=== PATIENT | male | born 1960 | race Caucasian/White ===

== ENCOUNTER 2017-04-14 05:35 | Emergency (ER) | payer SELFPAY ==
[2017-04-14] MEDS ORDERED: Ondansetron HCl/PF 4 MG/2 ML Vial ONE (06:17)
[2017-04-14] MEDS ORDERED: Pantoprazole 40 MG VIAL ONE (06:17)
[2017-04-14 06:22] LABS: #Eosinphils 0.1 thou/uL (0.0-0.7); #Lymphocytes 0.4 thou/uL (1.20-3.40); #Monocytes 0.8 thou/uL (0.11-0.59); #Neutrophils 11.6 thou/uL (1.40-6.50); %Basophils 0.1 % (0.0-1.0); %Eosinophils 0.5 % (0.0-10.0); %Lymphocytes 2.8 % (21.0-51.0); %Monocytes 6.5 % (0.0-10.0); Hematocrit 51.8 % (42.0-52.0); Mean Platelet Volume 6.6 fL (7.4-10.4); Red Blood Cell (RBC) Count 5.54 mill/uL (4.70-6.10); White Blood Cell (WBC) Count 12.9 thou/uL (4.8-10.8)
[2017-04-14 06:46] LABS: ALT (SGPT) 18 U/L (8-55); AST (SGOT) 17 U/L (5-34); Alkaline Phosphatase 86 U/L (40-150); Anion Gap 15 mmol/L (10-20); BUN (Urea Nitrogen) 19 mg/dL (8.4-25.7); Bilirubin, Total 0.6 mg/dL (0.2-1.2); Calc. Creatinine Clearance 0 mL/min (70-130); Calcium 9.7 mg/dL (7.8-10.44); Carbon Dioxide 23 mmol/L (22-29); Chloride 105 mmol/L (98-107); Estimated GFR-MDRD 69; Globulin 3.6 g/dL (2.4-3.5); Lipase 14 U/L (8-78); Protein, Total 8.3 g/dL (6.0-8.3)
[2017-04-14] MEDS ORDERED: Acetaminophen 500 MG TAB ONE (07:53)
--- NOTE | 2017-04-14 08:53 | RAD ---
ACUTE ABDOMINAL SERIES: DATE: 04/14/17. HISTORY: Nausea, vomiting, and diarrhea since 0130 hours. Abdominal pain. FINDINGS: CHEST X-RAY: Cardiac silhouette and pulmonary vasculature are within normal limits. The lungs are clear. There h as been no interval change from the study on 02/01/13. Degenerative changes are noted in the spine. TWO VIEWS OF THE ABDOMEN: No free intraperitoneal gas is seen beneath the hemidiaphragms. There is a nonspecific bowel gas pat tern. Phleboliths overlie the pelvis. There is a punctate metallic-appearing density overlying the abdomen, but this is noted to overlie the region of the transverse process of the L1 vertebral body o n the supine view and overlies the transverse process of the L4 vertebral body on the upright view. I am unsure of the exact location or whether this represents overlying artifact. This measures appro ximately 3 mm. No suspicious calcifications are seen. There are surgical clips overlying the right upper quadrant. Degenerative changes are noted in the spine. IMPRESSION: 1. Nonspecific bowel gas pattern. 2. Punctate metallic density medial left abdomen which is difficult to further localize but may repr esent a tiny metallic foreign body. POS: RENEA
== END 2017-04-14 08:20 | disposition home or self-care (01) ==
LOC: ERS 05:35
DX: R11.2 Nausea with vomiting, unspecified (principal); R19.7 Diarrhea, unspecified; R10.9 Unspecified abdominal pain; F41.9 Anxiety disorder, unspecified; Z87.891 Personal history of nicotine dependence; Z79.82 Long term (current) use of aspirin; Z79.899 Other long term (current) drug therapy
CPT/HCPCS: 74022; 80053; 83690; 85025; 93005; 96361; 96372; 96374; 96375; C9113; J2405

== ENCOUNTER 2022-04-23 19:37 | Inpatient (IN) | payer BC ==
[2022-04-23] MEDS ORDERED: FENTANYL 50 MCG/ML 1 ML VIAL ONE ×2 (20:16→22:10)
[2022-04-23] MEDS ORDERED: Ondansetron PF 4 MG/2 ML Vial ONE (20:34)
[2022-04-23] MEDS ORDERED: Piperacillin/Tazobactam 4.5 GM VIAL ONE (21:17)
[2022-04-23 22:05] LABS: #Eosinphils 0.1 thou/uL (0.0-0.7); #Lymphocytes 1.4 thou/uL (1.20-3.40); #Monocytes 0.6 thou/uL (0.11-0.59); #Neutrophils 9.4 thou/uL (1.40-6.50); %Basophils 0.1 % (0.0-1.0); %Eosinophils 0.5 % (0.0-10.0); %Lymphocytes 12.4 % (21.0-51.0); %Monocytes 5.2 % (0.0-10.0); %Neutrophils 81.9 % (42.0-75.0); Hemoglobin 12.1 g/dL (14.0-18.0); Mean Corpuscular HGB CONC 32.6 g/dL (32.0-36.0); Mean Corpuscular Hemoglobin 31.4 pg (27.0-31.0); Mean Corpuscular Volume 96.2 fl (78.0-98.0); Mean Platelet Volume 5.8 fL (7.4-10.4); Platelet Count 355 10x3/uL (130-400); RBC Distribution Width 15.1 % (11.5-14.5); Red Blood Cell (RBC) Count 3.85 mill/uL (4.70-6.10); White Blood Cell (WBC) Count 11.4 10x3/uL (4.8-10.8)
[2022-04-23 22:27] LABS: ALT (SGPT) 52 U/L (8-55); AST (SGOT) 35 U/L (5-34); Albumin 3.1 g/dL (3.5-5.0); Alkaline Phosphatase 252 U/L (40-110); Anion Gap 18 mmol/L (10-20); BUN (Urea Nitrogen) 34 mg/dL (8.4-25.7); Bilirubin, Total 1.3 mg/dL (0.2-1.2); Calc. Creatinine Clearance 0 mL/min (70-130); Calcium 8.4 mg/dL (7.8-10.44); Carbon Dioxide 20 mmol/L (22-29); Chloride 100 mmol/L (98-107); Estimated GFR 55; Globulin 3.1 g/dL (2.4-3.5); Glucose 85 mg/dL (70-105); Lipase 78 U/L (8-78); Potassium 4.3 mmol/L (3.5-5.1); Protein, Total 6.2 g/dL (6.0-8.3); Sodium 134 mmol/L (136-145)
[2022-04-23 22:48] LABS: CKMB 3.6 ng/mL (0-6.6)
[2022-04-24] MEDS ORDERED: Ondansetron ODT 4 MG TAB PO PRN (00:17)
[2022-04-24] MEDS ORDERED: Acetaminophen 650 MG Suppository PR PRN (00:17)
[2022-04-24] MEDS ORDERED: Acetaminophen 325 MG TAB PO PRN (00:17)
[2022-04-24] MEDS ORDERED: Piperacillin/Tazobactam 3.375 GM VIAL ONE ×2 (05:23→13:00)
[2022-04-24] MEDS: Piperacillin/Tazobactam 3.375 GM in Sodium Chloride 0.9% 100 ML IVPB SCH ×2 (05:29→13:09)
[2022-04-24 06:09] LABS: #Eosinphils 0.1 thou/uL (0.0-0.7); #Lymphocytes 1.5 thou/uL (1.20-3.40); #Monocytes 0.6 thou/uL (0.11-0.59); #Neutrophils 9.4 thou/uL (1.40-6.50); %Basophils 0.4 % (0.0-1.0); %Eosinophils 0.5 % (0.0-10.0); %Lymphocytes 13.2 % (21.0-51.0); %Monocytes 5.5 % (0.0-10.0); %Neutrophils 80.4 % (42.0-75.0); Hemoglobin 10.7 g/dL (14.0-18.0); Mean Corpuscular HGB CONC 31.1 g/dL (32.0-36.0); Mean Corpuscular Hemoglobin 30.5 pg (27.0-31.0); Mean Corpuscular Volume 98.3 fl (78.0-98.0); Mean Platelet Volume 6.6 fL (7.4-10.4); Platelet Count 339 10x3/uL (130-400); RBC Distribution Width 15.3 % (11.5-14.5); White Blood Cell (WBC) Count 11.6 10x3/uL (4.8-10.8)
[2022-04-24 07:30] LABS: Chloride 104 mmol/L (98-107); Potassium 4.5 mmol/L (3.5-5.1); Sodium 136 mmol/L (136-145)
[2022-04-24 07:30] LABS: Bilirubin Negative (Negative); Blood, Urine Negative (Negative); Clarity Clear (Clear); Glucose, Urine (Dipstick) Normal (Negative); Ketone, Urine Trace mg/dL (Negative); Leukocyte Negative Leu/uL (Negative); Nitrite Negative (Negative); Protein, Urine (Dipstick) 30 mg/dL (Neg-Trace); RBC/HPF 0-3 HPF (0-3); Specific Gravity, Urine 1.019 (1.002-1.036); Squamous Epithelial None Seen HPF (0-3); Urobilinogen Normal mg/dL (Less than 2); WBC/HPF 0-3 HPF (0-3); pH, Urine 5.5 (5.0-9.0)
[2022-04-24 07:31] LABS: Calcium 8.5 mg/dL (7.8-10.44); Glucose 90 mg/dL (70-105)
[2022-04-24 07:33] LABS: Anion Gap 15 mmol/L (10-20); Carbon Dioxide 22 mmol/L (22-29)
[2022-04-24 07:33] LABS: Bacteria/HPF 1+ HPF (None Seen)
[2022-04-24 07:34] LABS: Calc. Creatinine Clearance 0 mL/min (70-130); Estimated GFR 59
[2022-04-24 07:35] LABS: BUN (Urea Nitrogen) 31 mg/dL (8.4-25.7)
[2022-04-24] MEDS ORDERED: Sodium Chloride 0.9% 1,000 ML IV SCH ×2 (08:30→16:00)
[2022-04-24] MEDS ORDERED: Enoxaparin Sodium 40 MG/0.4 ML SYRINGE ONE (09:32)
[2022-04-24] MEDS: Enoxaparin Sodium 40 MG/0.4 ML SYRINGE SC SCH (09:42)
[2022-04-24 10:21] LABS: CKMB 2.5 ng/mL (0-6.6)
[2022-04-24] MEDS ORDERED: Albumin 25% 25 GM/100 ML BOT IVPB SCH (11:30)
[2022-04-24 11:56] LABS: SARS-CoV-2 NAA Rapid Test Not Detected (NotDetected)
[2022-04-24] MEDS ORDERED: Vancomycin 1 GM in Premix Bag 1 BAG IVPB SCH (16:00)
[2022-04-24 16:46] LABS: #Eosinphils 0.1 thou/uL (0.0-0.7); #Lymphocytes 1.3 thou/uL (1.20-3.40); #Monocytes 0.3 thou/uL (0.11-0.59); #Neutrophils 6.1 thou/uL (1.40-6.50); %Basophils 0.6 % (0.0-1.0); %Eosinophils 1.3 % (0.0-10.0); %Lymphocytes 16.2 % (21.0-51.0); %Monocytes 4.3 % (0.0-10.0); %Neutrophils 77.7 % (42.0-75.0); Hemoglobin 10.1 g/dL (14.0-18.0); Mean Corpuscular HGB CONC 31.1 g/dL (32.0-36.0); Mean Corpuscular Hemoglobin 30.9 pg (27.0-31.0); Mean Corpuscular Volume 99.3 fl (78.0-98.0); Mean Platelet Volume 5.7 fL (7.4-10.4); Platelet Count 335 10x3/uL (130-400); RBC Distribution Width 15.2 % (11.5-14.5); Red Blood Cell (RBC) Count 3.27 mill/uL (4.70-6.10); White Blood Cell (WBC) Count 7.8 10x3/uL (4.8-10.8)
[2022-04-24 16:56] LABS: Actual Bicarbonate (HCO3v) 21 mEq/L (22-28); Base Excess -0.7 mEq/L (-2.0 to +3.0); Calcium, Ionized (venous) 1.02 mmol/L (1.16-1.32); Chloride (VBG) 105 mmol/L (98-106); Potassium (VBG) 3.96 mmol/L (3.70-5.30); Sodium 134.5 mmol/L (133-146); pH (venous) 7.52 (7.32-7.43)
[2022-04-24 17:00] LABS: Lactic Acid 0.9 mmol/L (0.5-2.2)
[2022-04-24] MEDS ORDERED: Meropenem 1 GM in Sodium Chloride 0.9% 100 ML IVPB SCH ×2 (17:00→22:00)
[2022-04-24] MEDS ORDERED: VANCOMYCIN 2 GRAM/500 ML BAG 2 GM in Premix Bag 1 BAG IVPB SCH ×2 (17:00→19:15)
[2022-04-24] MEDS ORDERED: Morphine 4 MG/ML VIAL ONE (17:21)
[2022-04-24 17:27] LABS: CKMB 2.3 ng/mL (0-6.6)
[2022-04-24] MEDS ORDERED: Lidocaine 1% (PF) 30 ML VIAL ONE (17:32)
[2022-04-24] MEDS ORDERED: traMADol HCl 50 MG TAB PO PRN (18:09)
[2022-04-24] MEDS: NOREPINEPHRINE 8 MG/250 ML-D5W 250 ML IVPB SCH (18:10)
[2022-04-24] MEDS ORDERED: Pantoprazole 40 MG VIAL IVP SCH (18:30)
[2022-04-24] MEDS: Albumin 25% 25 GM/100 ML BOT IVPB SCH ×2 (18:49→23:39)
[2022-04-24] MEDS: Hydrocortisone Sod Succ/PF 100 mg/2 ml Vial IVP SCH ×2 (18:50→23:39)
[2022-04-24] MEDS: Lactated Ringer's 1,000 ML IV SCH (18:50)
[2022-04-24] MEDS: Morphine 4 MG/ML VIAL SLOW IVP PRN (19:45)
[2022-04-24] MEDS: Ondansetron PF 4 MG/2 ML Vial IVP PRN (19:46)
[2022-04-24] MEDS: HYDROcodone/Acetaminophen 7.5/325 mg Tablet PO PRN (21:12)
[2022-04-25] MEDS: Meropenem 1 GM in Sodium Chloride 0.9% 100 ML IVPB SCH ×3 (00:50→17:43)
[2022-04-25] MEDS: HYDROcodone/Acetaminophen 7.5/325 mg Tablet PO PRN ×3 (03:27→19:42)
[2022-04-25] MEDS: Lactated Ringer's 1,000 ML IV SCH ×2 (03:27→14:21)
[2022-04-25] MEDS: Vancomycin 1 GM in Premix Bag 1 BAG IVPB SCH ×2 (05:59→17:43)
[2022-04-25] MEDS: Hydrocortisone Sod Succ/PF 100 mg/2 ml Vial IVP SCH ×3 (05:59→17:49)
[2022-04-25] MEDS: Pantoprazole 40 MG VIAL IVP SCH (09:12)
[2022-04-25] MEDS: Enoxaparin Sodium 40 MG/0.4 ML SYRINGE SC SCH (09:12)
[2022-04-25] MEDS: Morphine 4 MG/ML VIAL SLOW IVP PRN (11:06)
[2022-04-25] MEDS ORDERED: Lidocaine 4% Topical Sol 50 ML BOT TOP PRN (11:14)
[2022-04-25] MEDS: NOREPINEPHRINE 8 MG/250 ML-D5W 250 ML IVPB SCH (14:22)
[2022-04-25] MEDS: Ondansetron PF 4 MG/2 ML Vial IVP PRN (21:25)
[2022-04-26] MEDS: HYDROcodone/Acetaminophen 7.5/325 mg Tablet PO PRN ×2 (00:03→10:42)
[2022-04-26] MEDS: Lactated Ringer's 1,000 ML IV SCH ×2 (01:57→10:49)
[2022-04-26] MEDS: Meropenem 1 GM in Sodium Chloride 0.9% 100 ML IVPB SCH ×3 (01:59→17:03)
[2022-04-26] MEDS: Hydrocortisone Sod Succ/PF 100 mg/2 ml Vial IVP SCH ×4 (02:01→18:09)
[2022-04-26 06:59] LABS: Vancomycin, Trough 29.5 ug/mL
[2022-04-26 08:27] LABS: #Lymphocytes 1.3 thou/uL (1.20-3.40); #Monocytes 0.6 thou/uL (0.11-0.59); #Neutrophils 8.3 thou/uL (1.40-6.50); %Basophils 0.2 % (0.0-1.0); %Eosinophils 0.3 % (0.0-10.0); %Lymphocytes 12.5 % (21.0-51.0); %Monocytes 5.4 % (0.0-10.0); %Neutrophils 81.5 % (42.0-75.0); Mean Corpuscular HGB CONC 31.4 g/dL (32.0-36.0); Mean Corpuscular Hemoglobin 30.9 pg (27.0-31.0); Mean Corpuscular Volume 98.4 fl (78.0-98.0); Mean Platelet Volume 6.3 fL (7.4-10.4); Platelet Count 329 10x3/uL (130-400); RBC Distribution Width 15.2 % (11.5-14.5); Red Blood Cell (RBC) Count 2.92 mill/uL (4.70-6.10); White Blood Cell (WBC) Count 10.2 10x3/uL (4.8-10.8)
[2022-04-26 08:35] LABS: ALT (SGPT) 29 U/L (8-55); AST (SGOT) 14 U/L (5-34); Albumin 3.3 g/dL (3.5-5.0); Alkaline Phosphatase 128 U/L (40-110); Anion Gap 18 mmol/L (10-20); BUN (Urea Nitrogen) 27 mg/dL (8.4-25.7); Bilirubin, Total 0.7 mg/dL (0.2-1.2); Calc. Creatinine Clearance 91 mL/min (70-130); Calcium 8.9 mg/dL (7.8-10.44); Carbon Dioxide 19 mmol/L (22-29); Chloride 107 mmol/L (98-107); Estimated GFR 73; Globulin 2.8 g/dL (2.4-3.5); Glucose 110 mg/dL (70-105); Magnesium 1.6 mg/dL (1.6-2.6); Phosphorus 3.6 mg/dL (2.3-4.7); Potassium 3.5 mmol/L (3.5-5.1); Protein, Total 6.1 g/dL (6.0-8.3); Sodium 140 mmol/L (136-145)
[2022-04-26] MEDS: Pantoprazole 40 MG VIAL IVP SCH (09:09)
[2022-04-26] MEDS: Enoxaparin Sodium 40 MG/0.4 ML SYRINGE SC SCH (09:10)
[2022-04-26] MEDS ORDERED: Acetaminophen 325 MG/10.15 ML UDCUP PO PRN (10:54)
[2022-04-26] MEDS ORDERED: Methyl Salicylate/Menthol 85 GM TUBE TOP PRN (10:55)
[2022-04-26] MEDS: Acetaminophen/Codeine 30-300mg Tablet PO PRN (17:55)
[2022-04-26] MEDS: Vancomycin 1 GM in Premix Bag 1 BAG IVPB SCH (18:08)
[2022-04-26] MEDS: Sodium Chloride 0.45% 1,000 ML IV SCH (19:50)
[2022-04-27] MEDS ORDERED: VANCOMYCIN 1.25 GM/250 ML BAG 1.25 GM in Premix Bag 1 BAG IVPB SCH (02:30)
[2022-04-27 03:42] LABS: Vancomycin, Random 20.4 ug/mL (See Comment)
[2022-04-27] MEDS: Enoxaparin Sodium 40 MG/0.4 ML SYRINGE SC SCH (08:08)
[2022-04-27] MEDS: Pantoprazole 40 MG VIAL IVP SCH (08:08)
[2022-04-27 08:20] LABS: #Eosinphils 0.1 thou/uL (0.0-0.7); #Monocytes 0.8 thou/uL (0.11-0.59); #Neutrophils 6.3 thou/uL (1.40-6.50); %Basophils 0.1 % (0.0-1.0); %Eosinophils 1.1 % (0.0-10.0); %Monocytes 8.9 % (0.0-10.0); %Neutrophils 67.9 % (42.0-75.0); Hemoglobin 9.6 g/dL (14.0-18.0); Mean Corpuscular HGB CONC 32.1 g/dL (32.0-36.0); Mean Corpuscular Hemoglobin 31.5 pg (27.0-31.0); Mean Corpuscular Volume 98.3 fl (78.0-98.0); Mean Platelet Volume 6.2 fL (7.4-10.4); Platelet Count 322 10x3/uL (130-400); RBC Distribution Width 15.4 % (11.5-14.5); Red Blood Cell (RBC) Count 3.03 mill/uL (4.70-6.10); White Blood Cell (WBC) Count 9.2 10x3/uL (4.8-10.8)
[2022-04-27 08:38] LABS: Anion Gap 15 mmol/L (10-20); BUN (Urea Nitrogen) 30 mg/dL (8.4-25.7); Calc. Creatinine Clearance 101 mL/min (70-130); Calcium 8.7 mg/dL (7.8-10.44); Carbon Dioxide 20 mmol/L (22-29); Chloride 105 mmol/L (98-107); Estimated GFR 82; Glucose 100 mg/dL (70-105); Potassium 3.2 mmol/L (3.5-5.1); Sodium 137 mmol/L (136-145)
[2022-04-27] MEDS ORDERED: Potassium Chloride 20 MEQ in Premix Bag 1 BAG IVPB SCH (09:45)
[2022-04-27] MEDS: HYDROcodone/Acetaminophen 7.5/325 mg Tablet PO PRN (10:55)
[2022-04-27] MEDS ORDERED: FLU VACC QS2022-23(6MOS UP)/PF 60 MCG/0.5 ML SYRINGE IM ONE (15:45)
[2022-04-27] MEDS: Sodium Chloride 0.45% 1,000 ML IV SCH ×2 (15:46→22:24)
[2022-04-27] MEDS: Acetaminophen/Codeine 30-300mg Tablet PO PRN ×2 (18:05→22:23)
[2022-04-28] MEDS: Acetaminophen/Codeine 30-300mg Tablet PO PRN ×3 (03:45→21:41)
[2022-04-28 03:57] LABS: #Eosinphils 0.4 thou/uL (0.0-0.7); #Lymphocytes 1.8 thou/uL (1.20-3.40); #Monocytes 0.8 thou/uL (0.11-0.59); #Neutrophils 4.6 thou/uL (1.40-6.50); %Basophils 0.1 % (0.0-1.0); %Eosinophils 5.4 % (0.0-10.0); %Lymphocytes 24.2 % (21.0-51.0); %Monocytes 10.1 % (0.0-10.0); %Neutrophils 60.1 % (42.0-75.0); Hemoglobin 9.7 g/dL (14.0-18.0); Mean Corpuscular HGB CONC 32.8 g/dL (32.0-36.0); Mean Corpuscular Hemoglobin 31.5 pg (27.0-31.0); Mean Platelet Volume 6.1 fL (7.4-10.4); Platelet Count 307 10x3/uL (130-400); RBC Distribution Width 14.9 % (11.5-14.5); Red Blood Cell (RBC) Count 3.08 mill/uL (4.70-6.10); White Blood Cell (WBC) Count 7.6 10x3/uL (4.8-10.8)
[2022-04-28 04:17] LABS: Anion Gap 11 mmol/L (10-20); BUN (Urea Nitrogen) 25 mg/dL (8.4-25.7); Calc. Creatinine Clearance 123 mL/min (70-130); Calcium 8.1 mg/dL (7.8-10.44); Carbon Dioxide 21 mmol/L (22-29); Chloride 106 mmol/L (98-107); Estimated GFR 99; Glucose 78 mg/dL (70-105); Potassium 3.2 mmol/L (3.5-5.1); Sodium 135 mmol/L (136-145)
[2022-04-28] MEDS ORDERED: Electrolyte Replacement Protocol 1 EACH FS SCH (08:00)
[2022-04-28] MEDS ORDERED: Potassium Chloride 20 MEQ TAB PO SCH (08:00)
[2022-04-28 08:10] LABS: Magnesium 1.3 mg/dL (1.6-2.6)
[2022-04-28] MEDS ORDERED: Electrolyte Replacement Protocol FS PRN (08:15)
[2022-04-28 08:44] LABS: Phosphorus 2.6 mg/dL (2.3-4.7)
[2022-04-28] MEDS ORDERED: Potassium Bicarbonate/Cit Ac 20 MEQ TAB PO SCH ×2 (09:00→14:30)
[2022-04-28] MEDS: Enoxaparin Sodium 40 MG/0.4 ML SYRINGE SC SCH (09:14)
[2022-04-28] MEDS ORDERED: Magnesium Sulfate 3 GM in Sodium Chloride 0.9% 100 ML IVPB SCH (09:45)
[2022-04-28] MEDS: Sodium Chloride 0.45% 1,000 ML IV SCH ×2 (10:15→19:51)
[2022-04-28] MEDS ORDERED: Magnesium Sulfate 4 GM in Sodium Chloride 0.9% 250 ML 250 ML IVPB SCH (12:00)
[2022-04-28] MEDS ORDERED: Magnesium Sulfate In Water 4 GM in Premix Bag 1 BAG IVPB SCH (12:00)
[2022-04-28 13:23] LABS: Potassium 3.5 mmol/L (3.5-5.1)
[2022-04-28 16:19] VITALS: BMI 27.6
[2022-04-28 19:54] LABS: Potassium 3.9 mmol/L (3.5-5.1)
[2022-04-29] MEDS: Acetaminophen/Codeine 30-300mg Tablet PO PRN ×3 (01:49→19:00)
[2022-04-29 05:39] LABS: Anion Gap 10 mmol/L (10-20); BUN (Urea Nitrogen) 18 mg/dL (8.4-25.7); Calc. Creatinine Clearance 135 mL/min (70-130); Carbon Dioxide 22 mmol/L (22-29); Chloride 103 mmol/L (98-107); Estimated GFR 102; Glucose 74 mg/dL (70-105); Magnesium 1.8 mg/dL (1.6-2.6); Phosphorus 2.8 mg/dL (2.3-4.7); Potassium 3.4 mmol/L (3.5-5.1); Sodium 132 mmol/L (136-145)
[2022-04-29] MEDS ORDERED: Sodium Chloride 0.9% 500 ML IV SCH (07:00)
[2022-04-29] MEDS: Enoxaparin Sodium 40 MG/0.4 ML SYRINGE SC SCH (09:25)
[2022-04-29] MEDS: Mag-Al 1200 mg/1200 mg/30 ML UDCUP PO PRN (09:26)
[2022-04-29] MEDS ORDERED: Acetaminophen 325 MG TAB PO PRN (10:49)
[2022-04-29] MEDS ORDERED: Lactated Ringer's 500 ML IV SCH (11:30)
[2022-04-29] MEDS ORDERED: Potassium Bicarbonate/Cit Ac 20 MEQ TAB PO SCH (12:45)
[2022-04-29] MEDS ORDERED: Magnesium 2 GM/50 ML(in water) 2 GM in Premix Bag 1 BAG IVPB SCH (12:45)
[2022-04-29] MEDS: Sodium Chloride 0.45% 1,000 ML IV SCH (17:43)
[2022-04-30] MEDS: Acetaminophen/Codeine 30-300mg Tablet PO PRN ×2 (02:34→08:24)
[2022-04-30] MEDS: Enoxaparin Sodium 40 MG/0.4 ML SYRINGE SC SCH (08:40)
[2022-04-30] MEDS: Mag-Al 1200 mg/1200 mg/30 ML UDCUP PO PRN (08:40)
[2022-04-30] MEDS ORDERED: Midodrine HCl 5 MG TAB PO SCH (10:45)
[2022-04-30] MEDS: Midodrine HCl 5 MG TAB PO SCH ×2 (14:35→20:15)
[2022-04-30] MEDS: Ondansetron PF 4 MG/2 ML Vial IVP PRN (17:52)
[2022-05-01] MEDS: Acetaminophen/Codeine 30-300mg Tablet PO PRN ×2 (01:00→13:00)
[2022-05-01] MEDS: Enoxaparin Sodium 40 MG/0.4 ML SYRINGE SC SCH (09:20)
[2022-05-01] MEDS: Midodrine HCl 5 MG TAB PO SCH ×2 (09:20→16:52)
[2022-05-01 16:21] VITALS: BP 81/49
[2022-05-01 16:45] VITALS: TEMP 97.7
== END 2022-05-01 19:15 | DRG 871 ==
LOC: ERS 19:37 → ERHOLD 04-24 00:17 → 2NO 04-24 14:56 → CCU 04-24 16:58 → IMCU/EMU 04-26 17:42
PROVIDERS: ADMIT Student in an Organized Health Care Education/Training Program; ATTEND Family Medicine
PROC: 02HV33Z Insertion of Infusion Device into Superior Vena Cava, Percutaneous Approach (ICD-10-PCS; principal; 2022-04-24)
PROC: B548ZZA Ultrasonography of Superior Vena Cava, Guidance (ICD-10-PCS; 2022-04-24)
PROC: 3E043XZ Introduction of Vasopressor into Central Vein, Percutaneous Approach (ICD-10-PCS; 2022-04-24)
PROC: 3E04329 Introduction of Other Anti-infective into Central Vein, Percutaneous Approach (ICD-10-PCS; 2022-04-24)
DX: A41.59 Other Gram-negative sepsis (principal); J15.0 Pneumonia due to Klebsiella pneumoniae; R65.21 Severe sepsis with septic shock; R57.0 Cardiogenic shock; K56.50 Intestinal adhesions [bands], unspecified as to partial versus complete obstruction; I69.354 Hemiplegia and hemiparesis following cerebral infarction affecting left non-dominant side; N17.9 Acute kidney failure, unspecified; J90 Pleural effusion, not elsewhere classified; N39.0 Urinary tract infection, site not specified; E87.1 Hypo-osmolality and hyponatremia; K56.7 Ileus, unspecified; J98.11 Atelectasis; Z20.822 Contact with and (suspected) exposure to COVID-19; I48.91 Unspecified atrial fibrillation; K21.9 Gastro-esophageal reflux disease without esophagitis; I25.5 Ischemic cardiomyopathy; N40.0 Benign prostatic hyperplasia without lower urinary tract symptoms; R79.89 Other specified abnormal findings of blood chemistry; R53.81 Other malaise; E87.6 Hypokalemia; I25.10 Atherosclerotic heart disease of native coronary artery without angina pectoris; Z95.1 Presence of aortocoronary bypass graft; Z85.46 Personal history of malignant neoplasm of prostate; Z79.82 Long term (current) use of aspirin; Z79.899 Other long term (current) drug therapy; Z90.49 Acquired absence of other specified parts of digestive tract; I25.2 Old myocardial infarction; Z93.2 Ileostomy status; Z87.891 Personal history of nicotine dependence
CPT/HCPCS: 36415; 36416; 71045; 76705; 80048; 80053; 80202; 81001; 82553; 82805; 83605; 83690; 83735; 84100; 84484; 85025; 87040; 87077; 87086; 87149; 87186; 87811; 93005; 93306; 96374; 96375; 96376; 97139; C9113; J1650; J1720; J1956; J2001; J2185; J2270; J2405; J2543; J3010; J3370; J3475; J3480; J3490; J7030; J7050; J7120; P9047; Q0162

== ENCOUNTER 2022-05-10 18:50 | Inpatient (IN) | payer BC ==
[~2022-05-10 18:50] MED LIST: Iopamidol-370 76% 500 ML 1 ML ONE
[2022-05-10 20:38] LABS: #Eosinphils 0.1 thou/uL (0.0-0.7); #Lymphocytes 1.8 thou/uL (1.20-3.40); #Monocytes 0.9 thou/uL (0.11-0.59); #Neutrophils 6.3 thou/uL (1.40-6.50); %Basophils 0.5 % (0.0-1.0); %Eosinophils 1.1 % (0.0-10.0); %Lymphocytes 19.5 % (21.0-51.0); %Monocytes 10.1 % (0.0-10.0); %Neutrophils 68.8 % (42.0-75.0); Hemoglobin 9.8 g/dL (14.0-18.0); Mean Corpuscular HGB CONC 31.9 g/dL (32.0-36.0); Mean Corpuscular Hemoglobin 30.8 pg (27.0-31.0); Mean Corpuscular Volume 96.8 fl (78.0-98.0); Mean Platelet Volume 6.6 fL (7.4-10.4); Platelet Count 328 10x3/uL (130-400); RBC Distribution Width 15.1 % (11.5-14.5); Red Blood Cell (RBC) Count 3.17 mill/uL (4.70-6.10); White Blood Cell (WBC) Count 9.2 10x3/uL (4.8-10.8)
[2022-05-10 20:58] LABS: ALT (SGPT) 30 U/L (8-55); AST (SGOT) 32 U/L (5-34); Albumin 3.1 g/dL (3.5-5.0); Alkaline Phosphatase 161 U/L (40-110); Anion Gap 16 mmol/L (10-20); BUN (Urea Nitrogen) 11 mg/dL (8.4-25.7); Calc. Creatinine Clearance 0 mL/min (70-130); Calcium 8.8 mg/dL (7.8-10.44); Carbon Dioxide 22 mmol/L (22-29); Chloride 99 mmol/L (98-107); Estimated GFR 95; Globulin 2.8 g/dL (2.4-3.5); Glucose 87 mg/dL (70-105); Lipase 26 U/L (8-78); Potassium 4.3 mmol/L (3.5-5.1); Protein, Total 5.9 g/dL (6.0-8.3); Sodium 133 mmol/L (136-145)
[2022-05-11 01:57] VITALS: BMI 26.6
[2022-05-11] MEDS: Ondansetron PF 4 MG/2 ML Vial IVP PRN ×3 (04:33→17:38)
[2022-05-11 05:21] LABS: SARS-CoV-2 NAA Rapid Test Not Detected (NotDetected)
[2022-05-11 07:24] LABS: #Basophils 0.1 thou/uL (0.0-0.2); #Eosinphils 0.2 thou/uL (0.0-0.7); #Lymphocytes 1.6 thou/uL (1.20-3.40); #Monocytes 0.8 thou/uL (0.11-0.59); #Neutrophils 4.5 thou/uL (1.40-6.50); %Basophils 0.9 % (0.0-1.0); %Eosinophils 2.7 % (0.0-10.0); %Lymphocytes 22.3 % (21.0-51.0); %Monocytes 11.3 % (0.0-10.0); %Neutrophils 62.7 % (42.0-75.0); Hemoglobin 9.9 g/dL (14.0-18.0); Mean Corpuscular HGB CONC 32.2 g/dL (32.0-36.0); Mean Corpuscular Hemoglobin 31.1 pg (27.0-31.0); Mean Corpuscular Volume 96.4 fl (78.0-98.0); Platelet Count 231 10x3/uL (130-400); RBC Distribution Width 15.1 % (11.5-14.5); Red Blood Cell (RBC) Count 3.17 mill/uL (4.70-6.10); White Blood Cell (WBC) Count 7.1 10x3/uL (4.8-10.8)
[2022-05-11 07:38] LABS: Anion Gap 18 mmol/L (10-20); BUN (Urea Nitrogen) 10 mg/dL (8.4-25.7); Calc. Creatinine Clearance 126 mL/min (70-130); Calcium 8.4 mg/dL (7.8-10.44); Carbon Dioxide 17 mmol/L (22-29); Chloride 103 mmol/L (98-107); Estimated GFR 100; Glucose 81 mg/dL (70-105); Magnesium 1.6 mg/dL (1.6-2.6); Potassium 3.7 mmol/L (3.5-5.1); Sodium 134 mmol/L (136-145)
[2022-05-11] MEDS: Enoxaparin Sodium 40 MG/0.4 ML SYRINGE SC SCH (08:07)
[2022-05-11] MEDS: Furosemide 20 MG/2 ML VIAL SLOW IVP SCH (08:07)
[2022-05-11] MEDS: Midodrine HCl 5 MG TAB PO SCH ×3 (08:08→21:46)
[2022-05-11] MEDS ORDERED: Cyclobenzaprine 10 MG TAB PO PRN (08:18)
[2022-05-11] MEDS ORDERED: Lidocaine 5% Patch TD SCH (08:30)
[2022-05-11] MEDS ORDERED: Pantoprazole 40 MG VIAL IVP SCH (09:00)
[2022-05-11] MEDS ORDERED: Cyclobenzaprine 10 MG TAB PO SCH (09:00)
[2022-05-11] MEDS ORDERED: Midodrine HCl 5 MG TAB PO SCH (09:00)
[2022-05-11] MEDS ORDERED: Morphine 4 MG/ML VIAL ONE (09:47)
[2022-05-11] MEDS ORDERED: Morphine 4 MG/ML VIAL SLOW IVP SCH (10:45)
[2022-05-11] MEDS: Ketorolac Tromethamine 30 MG/ML VIAL IVP PRN ×2 (10:45→23:33)
[2022-05-11] MEDS: Lidocaine 5% Patch TD SCH (10:46)
[2022-05-11] MEDS ORDERED: MD-Gastroview 120 ML BOT ONE (11:16)
[2022-05-11] MEDS: Transdermal Patch Removal TOP SCH (23:04)
[2022-05-12 06:17] LABS: #Basophils 0.1 thou/uL (0.0-0.2); #Eosinphils 0.3 thou/uL (0.0-0.7); #Lymphocytes 1.4 thou/uL (1.20-3.40); #Monocytes 0.9 thou/uL (0.11-0.59); #Neutrophils 4.8 thou/uL (1.40-6.50); %Basophils 0.8 % (0.0-1.0); %Eosinophils 3.7 % (0.0-10.0); %Lymphocytes 18.6 % (21.0-51.0); %Monocytes 12.5 % (0.0-10.0); %Neutrophils 64.4 % (42.0-75.0); Hemoglobin 10.1 g/dL (14.0-18.0); Mean Corpuscular Hemoglobin 30.5 pg (27.0-31.0); Mean Corpuscular Volume 98.3 fl (78.0-98.0); Mean Platelet Volume 6.4 fL (7.4-10.4); Platelet Count 323 10x3/uL (130-400); RBC Distribution Width 15.3 % (11.5-14.5); Red Blood Cell (RBC) Count 3.32 mill/uL (4.70-6.10); White Blood Cell (WBC) Count 7.4 10x3/uL (4.8-10.8)
[2022-05-12] MEDS ORDERED: Hydrocortisone Sod Succ/PF 100 mg/2 ml Vial IVP SCH ×2 (06:30→14:00)
[2022-05-12 06:35] LABS: Phosphorus 5.4 mg/dL (2.3-4.7)
[2022-05-12 06:40] LABS: Anion Gap 17 mmol/L (10-20); BUN (Urea Nitrogen) 12 mg/dL (8.4-25.7); Calc. Creatinine Clearance 106 mL/min (70-130); Calcium 8.9 mg/dL (7.8-10.44); Carbon Dioxide 23 mmol/L (22-29); Chloride 101 mmol/L (98-107); Estimated GFR 87; Glucose 69 mg/dL (70-105); Magnesium 1.8 mg/dL (1.6-2.6); Potassium 3.4 mmol/L (3.5-5.1); Sodium 138 mmol/L (136-145)
[2022-05-12] MEDS ORDERED: Magnesium 2 GM/50 ML(in water) 2 GM in Premix Bag 1 BAG IVPB SCH (08:15)
[2022-05-12] MEDS: Midodrine HCl 5 MG TAB PO SCH ×3 (08:36→20:26)
[2022-05-12] MEDS: Enoxaparin Sodium 40 MG/0.4 ML SYRINGE SC SCH (08:36)
[2022-05-12] MEDS: Lidocaine 5% Patch TD SCH (08:37)
[2022-05-12] MEDS: Furosemide 20 MG/2 ML VIAL SLOW IVP SCH (08:41)
[2022-05-12] MEDS ORDERED: FLU VACC QS2022-23(6MOS UP)/PF 60 MCG/0.5 ML SYRINGE IM ONE (09:00)
[2022-05-12] MEDS ORDERED: Potassium Chloride 20 MEQ in Premix Bag 1 BAG IVPB SCH (10:00)
[2022-05-12] MEDS: Ketorolac Tromethamine 30 MG/ML VIAL IVP PRN ×2 (12:17→20:25)
[2022-05-12] MEDS ORDERED: Potassium Chloride 20 MEQ TAB PO SCH (14:00)
[2022-05-12] MEDS: Transdermal Patch Removal TOP SCH (21:24)
[2022-05-12] MEDS: Melatonin 3 MG TAB PO SCH (21:24)
[2022-05-12] MEDS: Mag-Al 1200 mg/1200 mg/30 ML UDCUP PO PRN (23:28)
[2022-05-13 05:38] LABS: #Basophils 0.1 thou/uL (0.0-0.2); #Eosinphils 0.3 thou/uL (0.0-0.7); #Lymphocytes 2.6 thou/uL (1.20-3.40); #Monocytes 1.1 thou/uL (0.11-0.59); #Neutrophils 4.4 thou/uL (1.40-6.50); %Basophils 0.6 % (0.0-1.0); %Eosinophils 3.5 % (0.0-10.0); %Lymphocytes 30.7 % (21.0-51.0); %Monocytes 12.7 % (0.0-10.0); %Neutrophils 52.6 % (42.0-75.0); Hemoglobin 10.1 g/dL (14.0-18.0); Mean Corpuscular HGB CONC 32.1 g/dL (32.0-36.0); Mean Corpuscular Hemoglobin 31.1 pg (27.0-31.0); Mean Corpuscular Volume 97.1 fl (78.0-98.0); Mean Platelet Volume 6.6 fL (7.4-10.4); Platelet Count 323 10x3/uL (130-400); RBC Distribution Width 15.3 % (11.5-14.5); Red Blood Cell (RBC) Count 3.25 mill/uL (4.70-6.10); White Blood Cell (WBC) Count 8.4 10x3/uL (4.8-10.8)
[2022-05-13] MEDS ORDERED: Ketorolac Tromethamine 30 MG/ML VIAL IVP SCH (05:45)
[2022-05-13 05:54] LABS: Anion Gap 16 mmol/L (10-20); BUN (Urea Nitrogen) 17 mg/dL (8.4-25.7); Calc. Creatinine Clearance 85 mL/min (70-130); Calcium 8.7 mg/dL (7.8-10.44); Carbon Dioxide 25 mmol/L (22-29); Chloride 99 mmol/L (98-107); Estimated GFR 67; Glucose 96 mg/dL (70-105); Potassium 3.6 mmol/L (3.5-5.1); Sodium 136 mmol/L (136-145)
[2022-05-13] MEDS: Lidocaine 5% Patch TD SCH (08:27)
[2022-05-13] MEDS: Furosemide 20 MG/2 ML VIAL SLOW IVP SCH (08:27)
[2022-05-13] MEDS: Enoxaparin Sodium 40 MG/0.4 ML SYRINGE SC SCH (08:27)
[2022-05-13] MEDS: Midodrine HCl 5 MG TAB PO SCH ×3 (08:30→21:06)
[2022-05-13] MEDS: Acetaminophen 650 MG/20.3 ML UDCUP PO SCH ×2 (10:13→17:15)
[2022-05-13] MEDS: Ibuprofen 100 MG/5 ML UDCUP PO PRN ×2 (13:45→22:07)
[2022-05-13] MEDS: Transdermal Patch Removal TOP SCH (21:11)
[2022-05-13] MEDS: Melatonin 3 MG TAB PO SCH (23:12)
[2022-05-14] MEDS: Acetaminophen 650 MG/20.3 ML UDCUP PO SCH ×2 (00:25→06:25)
[2022-05-14] MEDS: Ibuprofen 100 MG/5 ML UDCUP PO PRN ×2 (06:24→17:51)
[2022-05-14] MEDS: Enoxaparin Sodium 40 MG/0.4 ML SYRINGE SC SCH (09:43)
[2022-05-14] MEDS: Midodrine HCl 5 MG TAB PO SCH ×3 (09:44→20:58)
[2022-05-14] MEDS: Furosemide 20 MG TAB PO SCH (09:44)
[2022-05-14] MEDS: Lidocaine 5% Patch TD SCH (09:54)
[2022-05-14] MEDS: Acetaminophen 500 MG TAB PO SCH ×2 (12:02→20:58)
[2022-05-14] MEDS: Transdermal Patch Removal TOP SCH (21:00)
[2022-05-14] MEDS: Melatonin 3 MG TAB PO SCH (23:05)
[2022-05-14] MEDS: Mag-Al 1200 mg/1200 mg/30 ML UDCUP PO PRN (23:46)
[2022-05-15] MEDS: Ibuprofen 100 MG/5 ML UDCUP PO PRN ×3 (02:11→21:16)
[2022-05-15] MEDS: Ondansetron PF 4 MG/2 ML Vial IVP PRN (04:45)
[2022-05-15] MEDS ORDERED: Ondansetron ODT 4 MG TAB SL SCH (06:00)
[2022-05-15] MEDS: Furosemide 20 MG TAB PO SCH (09:19)
[2022-05-15] MEDS: Midodrine HCl 5 MG TAB PO SCH ×3 (09:19→21:15)
[2022-05-15] MEDS: Acetaminophen 500 MG TAB PO SCH ×3 (09:19→21:15)
[2022-05-15] MEDS: Enoxaparin Sodium 40 MG/0.4 ML SYRINGE SC SCH (09:19)
[2022-05-15] MEDS: Lidocaine 5% Patch TD SCH (09:20)
[2022-05-15] MEDS: Melatonin 3 MG TAB PO SCH (21:17)
[2022-05-15] MEDS: Transdermal Patch Removal TOP SCH (21:17)
[2022-05-16] MEDS: Mag-Al 1200 mg/1200 mg/30 ML UDCUP PO PRN (04:42)
[2022-05-16] MEDS: Lidocaine 5% Patch TD SCH (08:32)
[2022-05-16] MEDS: Acetaminophen 500 MG TAB PO SCH ×2 (08:32→15:25)
[2022-05-16] MEDS: Furosemide 20 MG TAB PO SCH (08:32)
[2022-05-16] MEDS: Enoxaparin Sodium 40 MG/0.4 ML SYRINGE SC SCH (08:32)
[2022-05-16] MEDS: Midodrine HCl 5 MG TAB PO SCH ×2 (08:43→15:25)
[2022-05-16] MEDS: Ibuprofen 100 MG/5 ML UDCUP PO PRN (13:36)
[2022-05-16 15:37] VITALS: BP 90/65; TEMP 97.9
== END 2022-05-16 18:17 | DRG 394 ==
LOC: ERS 18:50 → SURG A 22:00
PROVIDERS: ADMIT Hospitalist; ATTEND Hospitalist
DX: K94.19 Other complications of enterostomy (principal); Z20.822 Contact with and (suspected) exposure to COVID-19; E87.1 Hypo-osmolality and hyponatremia; I50.22 Chronic systolic (congestive) heart failure; I42.8 Other cardiomyopathies; I69.354 Hemiplegia and hemiparesis following cerebral infarction affecting left non-dominant side; K91.30 Postprocedural intestinal obstruction, unspecified as to partial versus complete; I95.89 Other hypotension; R00.0 Tachycardia, unspecified; I48.91 Unspecified atrial fibrillation; K21.9 Gastro-esophageal reflux disease without esophagitis; N40.0 Benign prostatic hyperplasia without lower urinary tract symptoms; Y83.3 Surgical operation with formation of external stoma as the cause of abnormal reaction of the patient, or of later complication, without mention of misadventure at the time of the procedure; E87.6 Hypokalemia; L89.322 Pressure ulcer of left buttock, stage 2; E83.42 Hypomagnesemia; Z28.21 Immunization not carried out because of patient refusal; Z88.8 Allergy status to other drugs, medicaments and biological substances; Z79.899 Other long term (current) drug therapy; Z90.49 Acquired absence of other specified parts of digestive tract; Z85.46 Personal history of malignant neoplasm of prostate
CPT/HCPCS: 36415; 36416; 74177; 74250; 80048; 80053; 82533; 83605; 83690; 83735; 84100; 85025; 93005; 93010; 96360; 97139; C9113; J1650; J1720; J1885; J1940; J2270; J2405; J3475; J3480; Q0162; Q9963; Q9967; U0002

== ENCOUNTER 2022-06-04 13:32 | Emergency (ER) | payer BC ==
[2022-06-04 14:58] LABS: #Basophils 0.1 thou/uL (0.0-0.2); #Eosinphils 0.2 thou/uL (0.0-0.7); #Lymphocytes 2.4 thou/uL (1.20-3.40); #Monocytes 1.2 thou/uL (0.11-0.59); #Neutrophils 7.2 thou/uL (1.40-6.50); %Basophils 0.7 % (0.0-1.0); %Eosinophils 1.7 % (0.0-10.0); %Lymphocytes 21.6 % (21.0-51.0); %Monocytes 10.6 % (0.0-10.0); %Neutrophils 65.5 % (42.0-75.0); Hemoglobin 12.1 g/dL (14.0-18.0); Mean Corpuscular HGB CONC 32.7 g/dL (32.0-36.0); Mean Corpuscular Hemoglobin 30.7 pg (27.0-31.0); Mean Corpuscular Volume 93.8 fl (78.0-98.0); Mean Platelet Volume 6.2 fL (7.4-10.4); Platelet Count 390 10x3/uL (130-400); RBC Distribution Width 14.5 % (11.5-14.5); Red Blood Cell (RBC) Count 3.93 mill/uL (4.70-6.10); White Blood Cell (WBC) Count 11.1 10x3/uL (4.8-10.8)
[2022-06-04 15:12] LABS: ALT (SGPT) 38 U/L (8-55); AST (SGOT) 30 U/L (5-34); Albumin 3.3 g/dL (3.5-5.0); Alkaline Phosphatase 155 U/L (40-110); Anion Gap 18 mmol/L (10-20); BUN (Urea Nitrogen) 45 mg/dL (8.4-25.7); Bilirubin, Total 0.8 mg/dL (0.2-1.2); Calc. Creatinine Clearance 0 mL/min (70-130); Calcium 8.2 mg/dL (7.8-10.44); Carbon Dioxide 29 mmol/L (22-29); Chloride 83 mmol/L (98-107); Estimated GFR 23; Globulin 3.1 g/dL (2.4-3.5); Glucose 95 mg/dL (70-105); Potassium 3.7 mmol/L (3.5-5.1); Protein, Total 6.4 g/dL (6.0-8.3); Sodium 126 mmol/L (136-145)
[2022-06-04] MEDS ORDERED: Ondansetron PF 4 MG/2 ML Vial ONE (17:18)
== END 2022-06-04 16:28 ==
LOC: ERS 13:32
DX: N18.9 Chronic kidney disease, unspecified (principal); K21.9 Gastro-esophageal reflux disease without esophagitis; D72.829 Elevated white blood cell count, unspecified; Z79.82 Long term (current) use of aspirin; Z87.891 Personal history of nicotine dependence
CPT/HCPCS: 36415; 85025; 96374; J2405

== ENCOUNTER 2022-07-16 23:28 | Inpatient (IN) | payer BC ==
[2022-07-17] MEDS ORDERED: Acetaminophen 500 MG TAB ONE (00:07)
[2022-07-17 00:58] LABS: Hemoglobin 12.5 g/dL (14.0-18.0); Mean Corpuscular HGB CONC 35.7 g/dL (32.0-36.0); Mean Corpuscular Hemoglobin 33.8 pg (27.0-31.0); Mean Corpuscular Volume 94.9 fl (78.0-98.0); Mean Platelet Volume 6.5 fL (7.4-10.4); Platelet Count 350 10x3/uL (130-400); Red Blood Cell (RBC) Count 3.71 mill/uL (4.70-6.10)
[2022-07-17 01:18] LABS: ALT (SGPT) 27 U/L (8-55); AST (SGOT) 28 U/L (5-34); Albumin 2.9 g/dL (3.4-4.8); Alkaline Phosphatase 142 U/L (40-110); Anion Gap 28 mmol/L (10-20); Bilirubin, Total 0.4 mg/dL (0.2-1.2); Calc. Creatinine Clearance 0 mL/min (70-130); Calcium 8.6 mg/dL (7.8-10.44); Carbon Dioxide 16 mmol/L (23-31); Chloride 76 mmol/L (98-107); Estimated GFR 7; Globulin 3.3 g/dL (2.4-3.5); Glucose 101 mg/dL (80-115); Lipase 26 U/L (8-78); Potassium 4.5 mmol/L (3.5-5.1); Protein, Total 6.2 g/dL (5.8-8.1)
[2022-07-17] MEDS ORDERED: Cefepime 2 GM VIAL ONE (01:18)
[2022-07-17 01:21] LABS: Anisocytosis SLIGHT = 6-15 cells (100X) (0-5/hpf); Band 2 % (5-11); Crenated RBC SLIGHT = 1-5 cells (100X) (None Seen); Lymphocytes 6 % (21-51); MDiff Complete? YES; Monocytes 2 % (0-10); Neutrophil 90 % (42-75); Platelet Morphology Comment Appears Adequate; Polychromasia SLIGHT = 2-3 cells (100X) (0-2/hpf); Toxic Granulation SLIGHT; Vacuoles SLIGHT
[2022-07-17 01:22] LABS: Sodium 115 mmol/L (136-145)
[2022-07-17 01:30] LABS: BUN (Urea Nitrogen) 143 mg/dL (8.4-25.7)
[2022-07-17] MEDS ORDERED: metroNIDAZOLE 500 MG/100 ML BAG ONE (01:42)
[2022-07-17] MEDS ORDERED: Vancomycin 1 GM/200 ML (FROZEN) BAG ONE (01:42)
[2022-07-17 02:34] LABS: Bacteria/HPF 3+ HPF (None Seen); Bilirubin Negative (Negative); Blood, Urine 1+ (Negative); Clarity Extra Turbid (Clear); Glucose, Urine (Dipstick) Normal (Negative); Ketone, Urine Negative (Negative); Leukocyte 500 Leu/uL (Negative); Nitrite Negative (Negative); Protein, Urine (Dipstick) 50 mg/dL (Neg-Trace); RBC/HPF 21-50 HPF (0-3); Specific Gravity, Urine 1.019 (1.002-1.036); Squamous Epithelial None Seen HPF (0-3); Urobilinogen Normal mg/dL (Less than 2); WBC/HPF Greater than 50 HPF (0-3); Yeast-Hyphae 2+ HPF (None Seen)
[2022-07-17 04:47] LABS: Hemoglobin 9.3 g/dL (14.0-18.0); Mean Corpuscular Hemoglobin 33.5 pg (27.0-31.0); Mean Platelet Volume 6.2 fL (7.4-10.4); Platelet Count 250 10x3/uL (130-400); RBC Distribution Width 15.8 % (11.5-14.5); Red Blood Cell (RBC) Count 2.78 mill/uL (4.70-6.10); White Blood Cell (WBC) Count 19.9 10x3/uL (4.8-10.8)
[2022-07-17 04:58] LABS: Lactic Acid 2.3 mmol/L (0.5-2.2)
[2022-07-17] MEDS ORDERED: Sodium Chloride 0.9% 1,000 ML IV SCH ×2 (05:00→08:15)
[2022-07-17 05:06] LABS: Anion Gap 21 mmol/L (10-20); BUN (Urea Nitrogen) 119 mg/dL (8.4-25.7); Calc. Creatinine Clearance 0 mL/min (70-130); Calcium 7.2 mg/dL (7.8-10.44); Carbon Dioxide 12 mmol/L (23-31); Chloride 86 mmol/L (98-107); Estimated GFR 9; Glucose 68 mg/dL (80-115); Potassium 4.3 mmol/L (3.5-5.1); Sodium 115 mmol/L (136-145)
[2022-07-17 05:22] LABS: Band 2 % (5-11); Crenated RBC MODERATE= 6-15 cells (100X) (None Seen); Eosinophils 1 % (0-10); Large Platelets SLIGHT; Lymphocytes 2 % (21-51); MDiff Complete? YES; Monocytes 1 % (0-10); Neutrophil 94 % (42-75); Platelet Morphology Comment Appears Adequate; Polychromasia SLIGHT = 2-3 cells (100X) (0-2/hpf)
[2022-07-17] MEDS ORDERED: Albumin 25% 25 GM/100 ML BOT IVPB SCH (05:45)
[2022-07-17] MEDS ORDERED: Midodrine HCl 5 MG TAB PO SCH (05:45)
[2022-07-17] MEDS ORDERED: Metoprolol Tartrate 5 MG/5 ML VIAL IVP SCH (05:45)
[2022-07-17] MEDS ORDERED: Meropenem 1 GM in Sodium Chloride 0.9% 100 ML IVPB SCH (06:00)
[2022-07-17] MEDS ORDERED: Vancomycin HCl 500 MG in Sodium Chloride 0.9% 100 ML IVPB SCH (06:30)
[2022-07-17] MEDS ORDERED: Vancomycin Diaylsis Sliding Scale (Wt 71-99) FS SCH (06:45)
[2022-07-17] MEDS ORDERED: NOREPINEPHRINE 8 MG/250 ML-D5W 250 ML IVPB SCH ×2 (08:15→09:38)
[2022-07-17] MEDS ORDERED: Iopamidol 370 76% 100 ML VIAL ONE (08:32)
[2022-07-17] MEDS ORDERED: GASTROGRAFIN 30 ML BOT ONE (08:32)
[2022-07-17] MEDS ORDERED: Ondansetron PF 4 MG/2 ML Vial IVP PRN (08:49)
[2022-07-17] MEDS: Sodium Chloride 0.9% 500 ML IV SCH ×2 (09:00→09:30)
[2022-07-17] MEDS: Sodium Chloride 0.9% 1,000 ML IV SCH ×2 (09:45→19:32)
[2022-07-17 10:30] LABS: Anion Gap 20 mmol/L (10-20); BUN (Urea Nitrogen) 120 mg/dL (8.4-25.7); Calc. Creatinine Clearance 13 mL/min (70-130); Calcium 7.1 mg/dL (7.8-10.44); Carbon Dioxide 13 mmol/L (23-31); Chloride 87 mmol/L (98-107); Estimated GFR 9; Glucose 60 mg/dL (80-115); Magnesium 1.8 mg/dL (1.6-2.6); Phosphorus 7.1 mg/dL (2.3-4.7); Potassium 3.9 mmol/L (3.5-5.1)
[2022-07-17 10:38] LABS: Sodium 116 mmol/L (136-145)
[2022-07-17] MEDS: HYDROcodone/Acetaminophen 5/325 mg Tablet PO PRN (13:01)
[2022-07-17] MEDS ORDERED: FLU VACC QS2022-23(6MOS UP)/PF 60 MCG/0.5 ML SYRINGE IM ONE (14:00)
[2022-07-17 17:04] LABS: ALT (SGPT) 21 U/L (8-55); AST (SGOT) 28 U/L (5-34); Albumin 2.6 g/dL (3.4-4.8); Alkaline Phosphatase 99 U/L (40-110); Anion Gap 21 mmol/L (10-20); BUN (Urea Nitrogen) 114 mg/dL (8.4-25.7); Bilirubin, Total 0.5 mg/dL (0.2-1.2); Calc. Creatinine Clearance 13 mL/min (70-130); Calcium 7.4 mg/dL (7.8-10.44); Carbon Dioxide 13 mmol/L (23-31); Chloride 87 mmol/L (98-107); Estimated GFR 10; Globulin 2.3 g/dL (2.4-3.5); Glucose 72 mg/dL (80-115); Potassium 3.5 mmol/L (3.5-5.1); Protein, Total 4.9 g/dL (5.8-8.1)
[2022-07-17 17:14] LABS: Sodium 117 mmol/L (136-145)
[2022-07-17] MEDS ORDERED: Dextrose 5% in Water 1,000 ML IV PRN (17:30)
[2022-07-17] MEDS ORDERED: Dextrose 50% Abboject 50 ML SYRINGE IVP PRN (17:30)
[2022-07-17] MEDS: Meropenem 500 MG in Sodium Chloride 0.9% 100 ML IVPB SCH (20:45)
[2022-07-18] MEDS: Acetaminophen 325 MG TAB PO PRN (03:59)
[2022-07-18 04:22] LABS: #Eosinphils 0.1 thou/uL (0.0-0.7); #Lymphocytes 1.3 thou/uL (1.20-3.40); #Monocytes 0.6 thou/uL (0.11-0.59); #Neutrophils 14.4 thou/uL (1.40-6.50); %Basophils 0.1 % (0.0-1.0); %Eosinophils 0.4 % (0.0-10.0); %Lymphocytes 8.2 % (21.0-51.0); %Monocytes 3.9 % (0.0-10.0); %Neutrophils 87.4 % (42.0-75.0); Hemoglobin 8.4 g/dL (14.0-18.0); Mean Corpuscular HGB CONC 33.8 g/dL (32.0-36.0); Mean Corpuscular Hemoglobin 32.8 pg (27.0-31.0); Mean Corpuscular Volume 97.1 fl (78.0-98.0); Mean Platelet Volume 6.3 fL (7.4-10.4); Platelet Count 227 10x3/uL (130-400); RBC Distribution Width 16.1 % (11.5-14.5); Red Blood Cell (RBC) Count 2.55 mill/uL (4.70-6.10); White Blood Cell (WBC) Count 16.4 10x3/uL (4.8-10.8)
[2022-07-18 04:40] LABS: Lactic Acid 1.5 mmol/L (0.5-2.2)
[2022-07-18 04:46] LABS: ALT (SGPT) 18 U/L (8-55); AST (SGOT) 23 U/L (5-34); Albumin 2.1 g/dL (3.4-4.8); Alkaline Phosphatase 93 U/L (40-110); Anion Gap 19 mmol/L (10-20); BUN (Urea Nitrogen) 108 mg/dL (8.4-25.7); Bilirubin, Total 0.4 mg/dL (0.2-1.2); Calc. Creatinine Clearance 14 mL/min (70-130); Calcium 7.5 mg/dL (7.8-10.44); Carbon Dioxide 13 mmol/L (23-31); Chloride 89 mmol/L (98-107); Estimated GFR 10; Globulin 2.2 g/dL (2.4-3.5); Glucose 76 mg/dL (80-115); Magnesium 1.8 mg/dL (1.6-2.6); Phosphorus 6.5 mg/dL (2.3-4.7); Potassium 3.4 mmol/L (3.5-5.1); Protein, Total 4.3 g/dL (5.8-8.1)
[2022-07-18 04:53] LABS: Sodium 118 mmol/L (136-145)
[2022-07-18 07:40] LABS: Vancomycin, Trough 10.8 ug/mL
[2022-07-18] MEDS: Sodium Chloride 0.9% 1,000 ML IV SCH (07:49)
[2022-07-18] MEDS ORDERED: Vancomycin HCl 750 MG in Sodium Chloride 0.9% 250 ML 250 ML IVPB SCH (08:00)
[2022-07-18] MEDS ORDERED: Vancomycin Dose by Levels Sliding Scale (Wt 71-99) FS SCH (08:00)
[2022-07-18] MEDS ORDERED: Lansoprazole 15 MG/5 ML (BATCHED)UDCUP PO SCH (09:00)
[2022-07-18] MEDS: Meropenem 500 MG in Sodium Chloride 0.9% 100 ML IVPB SCH ×2 (09:23→20:22)
[2022-07-18] MEDS ORDERED: Sodium Bicarbonate 150 MEQ in Dextrose 5% in Water 1,000 ML IV SCH (11:30)
[2022-07-18] MEDS: Albumin 25% 25 GM/100 ML BOT IVPB SCH ×3 (11:55→23:10)
[2022-07-18 12:03] LABS: Thyroid Stimulating Hormone 3.1613 uIU/mL (0.35-4.94)
[2022-07-18] MEDS: Diphenoxylate HCl/Atropine Tablet PO SCH (20:22)
[2022-07-19] MEDS ORDERED: Mag-Al 1200 mg/1200 mg/30 ML UDCUP PO PRN (00:57)
[2022-07-19] MEDS: Diphenoxylate HCl/Atropine Tablet PO SCH ×4 (01:17→20:47)
[2022-07-19 04:13] LABS: #Eosinphils 0.2 thou/uL (0.0-0.7); #Lymphocytes 1.1 thou/uL (1.20-3.40); #Monocytes 0.4 thou/uL (0.11-0.59); %Basophils 0.5 % (0.0-1.0); %Eosinophils 1.8 % (0.0-10.0); %Lymphocytes 10.9 % (21.0-51.0); %Monocytes 4.3 % (0.0-10.0); %Neutrophils 82.6 % (42.0-75.0); Hemoglobin 6.9 g/dL (14.0-18.0); Mean Corpuscular HGB CONC 34.6 g/dL (32.0-36.0); Mean Corpuscular Hemoglobin 33.5 pg (27.0-31.0); Mean Corpuscular Volume 96.9 fl (78.0-98.0); Mean Platelet Volume 6.4 fL (7.4-10.4); Platelet Count 164 10x3/uL (130-400); RBC Distribution Width 15.8 % (11.5-14.5); Red Blood Cell (RBC) Count 2.07 mill/uL (4.70-6.10); White Blood Cell (WBC) Count 9.7 10x3/uL (4.8-10.8)
[2022-07-19 04:42] LABS: ALT (SGPT) 15 U/L (8-55); AST (SGOT) 21 U/L (5-34); Albumin 2.9 g/dL (3.4-4.8); Alkaline Phosphatase 72 U/L (40-110); Anion Gap 17 mmol/L (10-20); BUN (Urea Nitrogen) 102 mg/dL (8.4-25.7); Bilirubin, Total 0.7 mg/dL (0.2-1.2); Calc. Creatinine Clearance 15 mL/min (70-130); Calcium 7.8 mg/dL (7.8-10.44); Carbon Dioxide 19 mmol/L (23-31); Chloride 86 mmol/L (98-107); Estimated GFR 12; Globulin 1.7 g/dL (2.4-3.5); Glucose 67 mg/dL (80-115); Potassium 2.8 mmol/L (3.5-5.1); Protein, Total 4.6 g/dL (5.8-8.1)
[2022-07-19 04:44] LABS: Sodium 119 mmol/L (136-145)
[2022-07-19] MEDS: Potassium Chloride 20 MEQ in Premix Bag 1 BAG IVPB SCH ×2 (05:17→09:01)
[2022-07-19] MEDS: Albumin 25% 25 GM/100 ML BOT IVPB SCH (05:17)
[2022-07-19] MEDS ORDERED: Magnesium 2 GM/50 ML(in water) 2 GM in Premix Bag 1 BAG IVPB SCH (06:00)
[2022-07-19 07:00] LABS: INR-International Normal Ratio 1.2; Prothrombin Time 15.5 sec (12.0-14.7)
[2022-07-19 07:01] LABS: PTT 35.8 sec (22.9-36.1)
[2022-07-19 07:39] LABS: Magnesium 2.4 mg/dL (1.6-2.6); Phosphorus 5.2 mg/dL (2.3-4.7)
[2022-07-19 08:05] LABS: T4 Less than 2.0 ug/dL (4.87-11.72)
[2022-07-19] MEDS ORDERED: Pantoprazole 40 MG VIAL IVP SCH (09:00)
[2022-07-19] MEDS: Meropenem 500 MG in Sodium Chloride 0.9% 100 ML IVPB SCH ×2 (09:04→21:10)
[2022-07-19] MEDS: Sodium Chloride 0.9% 1,000 ML IV SCH ×3 (09:04→22:54)
[2022-07-19] MEDS: Acetaminophen 325 MG TAB PO PRN (10:01)
[2022-07-19] MEDS: HYDROcodone/Acetaminophen 5/325 mg Tablet PO PRN (15:46)
[2022-07-19 16:23] LABS: Hemoglobin 9.6 g/dL (14.0-18.0); Platelet Count 141 10x3/uL (130-400)
[2022-07-20] MEDS: Acetaminophen 325 MG TAB PO PRN ×3 (01:02→16:27)
[2022-07-20] MEDS: Diphenoxylate HCl/Atropine Tablet PO SCH ×4 (01:58→21:54)
[2022-07-20 03:28] LABS: #Basophils 0.1 thou/uL (0.0-0.2); #Eosinphils 0.1 thou/uL (0.0-0.7); #Monocytes 0.4 thou/uL (0.11-0.59); #Neutrophils 9.5 thou/uL (1.40-6.50); %Basophils 0.7 % (0.0-1.0); %Eosinophils 1.2 % (0.0-10.0); %Lymphocytes 9.1 % (21.0-51.0); %Neutrophils 85.1 % (42.0-75.0); Mean Corpuscular HGB CONC 35.1 g/dL (32.0-36.0); Mean Corpuscular Hemoglobin 33.2 pg (27.0-31.0); Mean Corpuscular Volume 94.6 fl (78.0-98.0); Mean Platelet Volume 6.3 fL (7.4-10.4); Platelet Count 127 10x3/uL (130-400); RBC Distribution Width 16.2 % (11.5-14.5); Red Blood Cell (RBC) Count 2.99 mill/uL (4.70-6.10); White Blood Cell (WBC) Count 11.1 10x3/uL (4.8-10.8)
[2022-07-20 03:50] LABS: ALT (SGPT) 13 U/L (8-55); AST (SGOT) 19 U/L (5-34); Albumin 2.9 g/dL (3.4-4.8); Alkaline Phosphatase 75 U/L (40-110); Anion Gap 15 mmol/L (10-20); BUN (Urea Nitrogen) 98 mg/dL (8.4-25.7); Calc. Creatinine Clearance 16 mL/min (70-130); Carbon Dioxide 17 mmol/L (23-31); Chloride 91 mmol/L (98-107); Estimated GFR 13; Globulin 1.7 g/dL (2.4-3.5); Glucose 73 mg/dL (80-115); Potassium 3.7 mmol/L (3.5-5.1); Protein, Total 4.6 g/dL (5.8-8.1)
[2022-07-20 03:57] LABS: Sodium 119 mmol/L (136-145)
[2022-07-20] MEDS: Meropenem 500 MG in Sodium Chloride 0.9% 100 ML IVPB SCH (08:31)
[2022-07-20 13:01] LABS: Sodium, Urine Less than 20 mmol/L (Not Available)
[2022-07-20 13:39] LABS: Creatinine, Urine 50.27 mg/dL (63-166)
[2022-07-20] MEDS: Sodium Chloride 0.9% 1,000 ML IV SCH (14:11)
[2022-07-20 14:34] VITALS: BP 101/61
[2022-07-20] MEDS ORDERED: Sodium Bicarbonate 150 MEQ in Dextrose 5% in Water 1,000 ML IV SCH (16:45)
[2022-07-20] MEDS: Magnesium Oxide 400 MG TAB PO SCH (21:54)
[2022-07-20] MEDS: Cefuroxime 250 MG TAB PO SCH (21:54)
[2022-07-21] MEDS: HYDROcodone/Acetaminophen 5/325 mg Tablet PO PRN (00:34)
[2022-07-21 04:23] LABS: ALT (SGPT) 12 U/L (8-55); AST (SGOT) 16 U/L (5-34); Albumin 2.5 g/dL (3.4-4.8); Alkaline Phosphatase 78 U/L (40-110); Anion Gap 17 mmol/L (10-20); BUN (Urea Nitrogen) 91 mg/dL (8.4-25.7); Bilirubin, Total 0.7 mg/dL (0.2-1.2); Calc. Creatinine Clearance 19 mL/min (70-130); Calcium 7.8 mg/dL (7.8-10.44); Carbon Dioxide 17 mmol/L (23-31); Chloride 91 mmol/L (98-107); Estimated GFR 15; Globulin 1.8 g/dL (2.4-3.5); Glucose 86 mg/dL (80-115); Potassium 3.5 mmol/L (3.5-5.1); Protein, Total 4.3 g/dL (5.8-8.1); Sodium 121 mmol/L (136-145)
[2022-07-21 04:35] LABS: #Eosinphils 0.2 thou/uL (0.0-0.7); #Lymphocytes 0.9 thou/uL (1.20-3.40); #Monocytes 0.4 thou/uL (0.11-0.59); %Eosinophils 2.5 % (0.0-10.0); %Lymphocytes 10.5 % (21.0-51.0); %Monocytes 4.1 % (0.0-10.0); %Neutrophils 82.9 % (42.0-75.0); Hemoglobin 10.6 g/dL (14.0-18.0); Mean Corpuscular HGB CONC 34.5 g/dL (32.0-36.0); Mean Corpuscular Hemoglobin 32.8 pg (27.0-31.0); Mean Corpuscular Volume 94.9 fl (78.0-98.0); Mean Platelet Volume 7.1 fL (7.4-10.4); Platelet Count 106 10x3/uL (130-400); RBC Distribution Width 16.4 % (11.5-14.5); Red Blood Cell (RBC) Count 3.22 mill/uL (4.70-6.10); White Blood Cell (WBC) Count 8.4 10x3/uL (4.8-10.8)
[2022-07-21] MEDS: Diphenoxylate HCl/Atropine Tablet PO SCH ×4 (06:39→21:42)
[2022-07-21] MEDS ORDERED: Sodium Chloride 0.9% 1,000 ML IV SCH (07:15)
[2022-07-21] MEDS ORDERED: Potassium Chloride 20 MEQ TAB PO SCH (08:30)
[2022-07-21] MEDS: Cefuroxime 250 MG TAB PO SCH ×2 (08:43→21:42)
[2022-07-21] MEDS: Magnesium Oxide 400 MG TAB PO SCH ×2 (08:43→21:43)
[2022-07-21] MEDS: Acetaminophen 325 MG TAB PO PRN ×2 (09:27→14:29)
[2022-07-21] MEDS: Sodium Chloride 0.9% 1,000 ML IV SCH ×2 (12:30→21:47)
[2022-07-21] MEDS: Cyclobenzaprine 10 MG TAB PO PRN (14:57)
[2022-07-22] MEDS: Diphenoxylate HCl/Atropine Tablet PO SCH ×4 (03:06→22:01)
[2022-07-22] MEDS: Acetaminophen 325 MG TAB PO PRN ×2 (03:06→09:01)
[2022-07-22 07:01] LABS: #Eosinphils 0.2 thou/uL (0.0-0.7); #Lymphocytes 1.1 thou/uL (1.20-3.40); #Monocytes 0.4 thou/uL (0.11-0.59); %Basophils 0.1 % (0.0-1.0); %Eosinophils 3.1 % (0.0-10.0); %Lymphocytes 16.2 % (21.0-51.0); %Monocytes 6.2 % (0.0-10.0); %Neutrophils 74.4 % (42.0-75.0); Hemoglobin 10.4 g/dL (14.0-18.0); Mean Corpuscular HGB CONC 33.9 g/dL (32.0-36.0); Mean Corpuscular Hemoglobin 32.8 pg (27.0-31.0); Mean Corpuscular Volume 96.8 fl (78.0-98.0); Mean Platelet Volume 7.2 fL (7.4-10.4); Platelet Count 109 10x3/uL (130-400); RBC Distribution Width 16.3 % (11.5-14.5); Red Blood Cell (RBC) Count 3.19 mill/uL (4.70-6.10); White Blood Cell (WBC) Count 6.8 10x3/uL (4.8-10.8)
[2022-07-22 07:13] LABS: ALT (SGPT) 11 U/L (8-55); AST (SGOT) 14 U/L (5-34); Albumin 2.5 g/dL (3.4-4.8); Alkaline Phosphatase 84 U/L (40-110); Anion Gap 10 mmol/L (10-20); BUN (Urea Nitrogen) 76 mg/dL (8.4-25.7); Bilirubin, Total 0.7 mg/dL (0.2-1.2); Calc. Creatinine Clearance 25 mL/min (70-130); Calcium 7.7 mg/dL (7.8-10.44); Carbon Dioxide 23 mmol/L (23-31); Chloride 94 mmol/L (98-107); Estimated GFR 22; Globulin 1.8 g/dL (2.4-3.5); Glucose 71 mg/dL (80-115); Potassium 3.6 mmol/L (3.5-5.1); Protein, Total 4.3 g/dL (5.8-8.1); Sodium 123 mmol/L (136-145)
[2022-07-22] MEDS: Cefuroxime 250 MG TAB PO SCH ×2 (09:00→22:01)
[2022-07-22] MEDS: Magnesium Oxide 400 MG TAB PO SCH ×2 (09:01→22:01)
[2022-07-22 11:15] VITALS: BMI 23.6
[2022-07-22] MEDS: Acetaminophen/Codeine 30-300mg Tablet PO PRN ×3 (12:16→22:01)
[2022-07-22] MEDS: Sodium Chloride 0.9% 1,000 ML IV SCH (22:09)
[2022-07-23] MEDS: Acetaminophen/Codeine 30-300mg Tablet PO PRN ×2 (00:30→23:53)
[2022-07-23] MEDS: Diphenoxylate HCl/Atropine Tablet PO SCH ×4 (04:07→20:40)
[2022-07-23] MEDS: Cefuroxime 250 MG TAB PO SCH ×2 (08:24→20:37)
[2022-07-23] MEDS: Cyclobenzaprine 10 MG TAB PO PRN ×2 (08:26→14:35)
[2022-07-23] MEDS: Magnesium Oxide 400 MG TAB PO SCH ×2 (08:27→20:37)
[2022-07-23] MEDS: Sodium Chloride 0.9% 1,000 ML IV SCH (17:50)
[2022-07-24] MEDS: Diphenoxylate HCl/Atropine Tablet PO SCH ×4 (03:07→20:32)
[2022-07-24] MEDS: Sodium Chloride 0.9% 1,000 ML IV SCH ×2 (03:07→19:10)
[2022-07-24] MEDS: Acetaminophen/Codeine 30-300mg Tablet PO PRN ×3 (04:25→15:33)
[2022-07-24 05:02] LABS: Anion Gap 13 mmol/L (10-20); BUN (Urea Nitrogen) 58 mg/dL (8.4-25.7); Calc. Creatinine Clearance 43 mL/min (70-130); Calcium 7.6 mg/dL (7.8-10.44); Carbon Dioxide 21 mmol/L (23-31); Chloride 97 mmol/L (98-107); Estimated GFR 35; Glucose 75 mg/dL (80-115); Sodium 127 mmol/L (136-145)
[2022-07-24] MEDS ORDERED: Midodrine HCl 5 MG TAB PO SCH (09:15)
[2022-07-24] MEDS: Cefuroxime 250 MG TAB PO SCH ×2 (10:09→21:30)
[2022-07-24] MEDS: Magnesium Oxide 400 MG TAB PO SCH ×2 (10:09→20:32)
[2022-07-24] MEDS ORDERED: Sodium Chloride 0.65% Nasal 44 ML BOT EA NARE PRN (13:19)
[2022-07-24] MEDS: Midodrine HCl 5 MG TAB PO SCH ×2 (15:33→20:32)
[2022-07-24] MEDS: Acetaminophen 325 MG TAB PO PRN (20:28)
[2022-07-25] MEDS: Diphenoxylate HCl/Atropine Tablet PO SCH ×2 (02:51→08:58)
[2022-07-25 04:13] LABS: Hemoglobin 10.9 g/dL (14.0-18.0); Mean Corpuscular HGB CONC 32.8 g/dL (32.0-36.0); Mean Corpuscular Hemoglobin 32.7 pg (27.0-31.0); Mean Corpuscular Volume 99.9 fl (78.0-98.0); Mean Platelet Volume 7.4 fL (7.4-10.4); Platelet Count 154 10x3/uL (130-400); RBC Distribution Width 16.3 % (11.5-14.5); Red Blood Cell (RBC) Count 3.32 mill/uL (4.70-6.10); White Blood Cell (WBC) Count 6.3 10x3/uL (4.8-10.8)
[2022-07-25 04:29] LABS: Anion Gap 11 mmol/L (10-20); BUN (Urea Nitrogen) 51 mg/dL (8.4-25.7); Calc. Creatinine Clearance 50 mL/min (70-130); Calcium 7.8 mg/dL (7.8-10.44); Carbon Dioxide 22 mmol/L (23-31); Chloride 99 mmol/L (98-107); Estimated GFR 40; Glucose 76 mg/dL (80-115); Potassium 4.7 mmol/L (3.5-5.1); Sodium 127 mmol/L (136-145)
[2022-07-25] MEDS: Cefuroxime 250 MG TAB PO SCH (08:58)
[2022-07-25] MEDS: Magnesium Oxide 400 MG TAB PO SCH (08:58)
[2022-07-25] MEDS: Midodrine HCl 5 MG TAB PO SCH (08:58)
[2022-07-25] MEDS: Acetaminophen 325 MG TAB PO PRN (09:07)
[2022-07-25 12:25] VITALS: TEMP 98.2
== END 2022-07-25 13:10 | disposition home or self-care (01) | DRG 862 ==
LOC: ERS 23:28 → IMCU/EMU 07-17 03:37 → CCU 07-17 08:22 → IMCU/EMU 07-20 18:12
PROVIDERS: ADMIT Hospitalist; ATTEND Family Medicine
PROC: 3E03329 Introduction of Other Anti-infective into Peripheral Vein, Percutaneous Approach (ICD-10-PCS; principal; 2022-07-17)
PROC: 02HV33Z Insertion of Infusion Device into Superior Vena Cava, Percutaneous Approach (ICD-10-PCS; 2022-07-17)
PROC: 30233N1 Transfusion of Nonautologous Red Blood Cells into Peripheral Vein, Percutaneous Approach (ICD-10-PCS; 2022-07-19)
DX: T81.49XA Infection following a procedure, other surgical site, initial encounter (principal); A41.9 Sepsis, unspecified organism; R65.21 Severe sepsis with septic shock; I69.954 Hemiplegia and hemiparesis following unspecified cerebrovascular disease affecting left non-dominant side; N17.9 Acute kidney failure, unspecified; E87.1 Hypo-osmolality and hyponatremia; N39.0 Urinary tract infection, site not specified; E87.20 Acidosis, unspecified; D62 Acute posthemorrhagic anemia; N18.4 Chronic kidney disease, stage 4 (severe); I48.91 Unspecified atrial fibrillation; N40.0 Benign prostatic hyperplasia without lower urinary tract symptoms; K21.9 Gastro-esophageal reflux disease without esophagitis; N18.30 Chronic kidney disease, stage 3 unspecified; F41.9 Anxiety disorder, unspecified; D63.1 Anemia in chronic kidney disease; E87.6 Hypokalemia; I25.2 Old myocardial infarction; Z95.1 Presence of aortocoronary bypass graft; Z90.49 Acquired absence of other specified parts of digestive tract; Z88.8 Allergy status to other drugs, medicaments and biological substances; Z79.82 Long term (current) use of aspirin; Z79.899 Other long term (current) drug therapy; Y83.8 Other surgical procedures as the cause of abnormal reaction of the patient, or of later complication, without mention of misadventure at the time of the procedure
CPT/HCPCS: 36415; 36416; 36430; 51701; 71045; 74177; 80048; 80053; 80202; 81003; 81015; 82533; 82570; 83605; 83690; 83735; 83935; 84100; 84145; 84300; 84436; 84443; 85025; 85027; 85610; 85730; 86850; 86900; 86901; 87040; 87086; 96361; 96365; 96367; 96368; 97139; J0692; J1650; J2185; J2405; J3370; J3370-JW; J3475; J3480; J3490; J7030; J7050; J7070; P9016; P9047; Q9963; Q9967

== ENCOUNTER 2022-07-27 23:10 | Inpatient (IN) | payer BC ==
[2022-07-28 00:17] LABS: Hemoglobin 12.2 g/dL (14.0-18.0); Mean Corpuscular Hemoglobin 31.8 pg (27.0-31.0); Mean Corpuscular Volume 99.3 fl (78.0-98.0); Mean Platelet Volume 6.7 fL (7.4-10.4); Platelet Count 290 10x3/uL (130-400); RBC Distribution Width 16.2 % (11.5-14.5); Red Blood Cell (RBC) Count 3.84 mill/uL (4.70-6.10); White Blood Cell (WBC) Count 9.1 10x3/uL (4.8-10.8)
[2022-07-28 00:26] LABS: ALT (SGPT) 33 U/L (8-55); AST (SGOT) 31 U/L (5-34); Albumin 2.6 g/dL (3.4-4.8); Alkaline Phosphatase 182 U/L (40-110); Anion Gap 15 mmol/L (10-20); BUN (Urea Nitrogen) 38 mg/dL (8.4-25.7); Bilirubin, Total 0.6 mg/dL (0.2-1.2); Calc. Creatinine Clearance 0 mL/min (70-130); Calcium 8.7 mg/dL (7.8-10.44); Carbon Dioxide 19 mmol/L (23-31); Chloride 100 mmol/L (98-107); Estimated GFR 44; Globulin 3.1 g/dL (2.4-3.5); Glucose 73 mg/dL (80-115); Magnesium 1.5 mg/dL (1.6-2.6); Potassium 5.3 mmol/L (3.5-5.1); Protein, Total 5.7 g/dL (5.8-8.1); Sodium 129 mmol/L (136-145)
[2022-07-28 00:42] LABS: Anisocytosis SLIGHT = 6-15 cells (100X) (0-5/hpf); Band 7 % (5-11); Eosinophils 1 % (0-10); Hypochromia SLIGHT = 6-15 cells (100X) (0-5/hpf); Lymphocytes 17 % (21-51); MDiff Complete? YES; Monocytes 8 % (0-10); Neutrophil 67 % (42-75); Platelet Morphology Comment Appears Adequate; Polychromasia SLIGHT = 2-3 cells (100X) (0-2/hpf)
[2022-07-28 00:48] LABS: CKMB 5.6 ng/mL (0-6.6)
[2022-07-28] MEDS ORDERED: cefTRIAXone\\ROCEPHIN 2 GM VIAL ONE (00:51)
[2022-07-28 01:06] LABS: Bilirubin Negative (Negative); Blood, Urine 1+ (Negative); Clarity Turbid (Clear); Glucose, Urine (Dipstick) Normal (Negative); Ketone, Urine Negative (Negative); Leukocyte 500 Leu/uL (Negative); Nitrite Negative (Negative); Protein, Urine (Dipstick) 70 mg/dL (Neg-Trace); Specific Gravity, Urine 1.018 (1.002-1.036); Squamous Epithelial 0-3 HPF (0-3); Urobilinogen Normal mg/dL (Less than 2); WBC/HPF Greater than 50 HPF (0-3); Yeast-Budding 2+ HPF (None Seen); pH, Urine 5.5 (5.0-9.0)
[2022-07-28 01:07] LABS: Bacteria/HPF 1+ HPF (None Seen)
[2022-07-28] MEDS ORDERED: Aspirin Chewable 81 MG TAB ONE (01:10)
[2022-07-28] MEDS ORDERED: Vancomycin 1 GM/200 ML (FROZEN) BAG ONE (01:32)
[2022-07-28] MEDS ORDERED: Magnesium 2 GM/50 ML BAG (IN WATER) ONE (01:34)
[2022-07-28] MEDS ORDERED: Midodrine HCl 5 MG TAB PO SCH (01:45)
[2022-07-28] MEDS ORDERED: Ondansetron ODT 4 MG TAB PO PRN (01:46)
[2022-07-28] MEDS ORDERED: Acetaminophen 325 MG TAB PO PRN (01:46)
[2022-07-28] MEDS ORDERED: Acetaminophen 650 MG Suppository PR PRN (01:46)
[2022-07-28] MEDS ORDERED: Ondansetron PF 4 MG/2 ML Vial IVP PRN (01:46)
[2022-07-28 02:52] VITALS: BMI 25.2
[2022-07-28] MEDS ORDERED: Ondansetron PF 4 MG/2 ML Vial ONE (02:54)
[2022-07-28] MEDS ORDERED: Electrolyte Replacement Protocol 1 EACH FS SCH (03:15)
[2022-07-28 03:19] LABS: #Basophils 0.1 thou/uL (0.0-0.2); #Eosinphils 0.1 thou/uL (0.0-0.7); #Lymphocytes 1.5 thou/uL (1.20-3.40); #Monocytes 1.3 thou/uL (0.11-0.59); #Neutrophils 7.2 thou/uL (1.40-6.50); %Basophils 0.8 % (0.0-1.0); %Eosinophils 0.6 % (0.0-10.0); %Lymphocytes 14.8 % (21.0-51.0); %Neutrophils 70.8 % (42.0-75.0); Hemoglobin 12.3 g/dL (14.0-18.0); Mean Corpuscular HGB CONC 32.6 g/dL (32.0-36.0); Mean Platelet Volume 6.8 fL (7.4-10.4); Platelet Count 203 10x3/uL (130-400); RBC Distribution Width 16.3 % (11.5-14.5); Red Blood Cell (RBC) Count 3.72 mill/uL (4.70-6.10); White Blood Cell (WBC) Count 10.1 10x3/uL (4.8-10.8)
[2022-07-28 03:28] LABS: Anion Gap 16 mmol/L (10-20); BUN (Urea Nitrogen) 37 mg/dL (8.4-25.7); Calc. Creatinine Clearance 56 mL/min (70-130); Calcium 8.2 mg/dL (7.8-10.44); Carbon Dioxide 19 mmol/L (23-31); Chloride 102 mmol/L (98-107); Estimated GFR 47; Glucose 71 mg/dL (80-115); Magnesium 1.8 mg/dL (1.6-2.6); Potassium 4.9 mmol/L (3.5-5.1); Sodium 132 mmol/L (136-145)
[2022-07-28 03:32] LABS: Troponin I 0.098 ng/mL (< 0.028)
[2022-07-28] MEDS ORDERED: Magnesium 2 GM/50 ML(in water) 2 GM in Premix Bag 1 BAG IVPB SCH (05:00)
[2022-07-28 06:34] LABS: Troponin I 0.104 ng/mL (< 0.028)
[2022-07-28 07:10] VITALS: BP 78/59; TEMP 98.2
[2022-07-28] MEDS ORDERED: ISOVUE-370 76%-LOCM 1 ML ONE (14:43)
[2022-07-28] MEDS ORDERED: cefTRIAXone\\ROCEPHIN 1 GM in Sodium Chloride 0.9% 100 ML IVPB SCH (21:00)
== END 2022-07-28 09:09 | disposition home or self-care (01) | DRG 920 ==
LOC: ERS 23:10 → ERHOLD 07-28 01:42
PROVIDERS: ADMIT Family Medicine; ATTEND Family Medicine
DX: T81.89XA Other complications of procedures, not elsewhere classified, initial encounter (principal); E87.1 Hypo-osmolality and hyponatremia; I69.354 Hemiplegia and hemiparesis following cerebral infarction affecting left non-dominant side; N17.9 Acute kidney failure, unspecified; I25.10 Atherosclerotic heart disease of native coronary artery without angina pectoris; N18.9 Chronic kidney disease, unspecified; K21.9 Gastro-esophageal reflux disease without esophagitis; E87.5 Hyperkalemia; E86.0 Dehydration; R77.8 Other specified abnormalities of plasma proteins; R82.998 Other abnormal findings in urine; I95.89 Other hypotension; E83.42 Hypomagnesemia; Y83.8 Other surgical procedures as the cause of abnormal reaction of the patient, or of later complication, without mention of misadventure at the time of the procedure; Z86.74 Personal history of sudden cardiac arrest; Z95.1 Presence of aortocoronary bypass graft; Z88.8 Allergy status to other drugs, medicaments and biological substances; Z79.82 Long term (current) use of aspirin; Z79.899 Other long term (current) drug therapy; I25.2 Old myocardial infarction; Z85.46 Personal history of malignant neoplasm of prostate; Z90.49 Acquired absence of other specified parts of digestive tract; Z93.3 Colostomy status
CPT/HCPCS: 36415; 71045; 74177; 80048; 80053; 81003; 81015; 82553; 83605; 83735; 84484; 85025; 87040; 87070; 87077; 87086; 87186; 87205; 93005; 96365; 96367; 96372; 96375; J0696; J1650; J2405; J3370-JW; J3475; Q0162; Q9966

== ENCOUNTER 2023-07-18 03:43 | Inpatient (IN) | payer BC ==
[2023-07-18] MEDS ORDERED: levETIRAcetam 500 MG (5 mL) VIAL ONE ×2 (03:58→10:18)
[2023-07-18 04:10] LABS: #Basophils 0.1 thou/uL (0.0-0.2); #Eosinphils 0.1 thou/uL (0.0-0.7); #Monocytes 1.7 thou/uL (0.11-0.59); %Basophils 0.4 % (0.0-1.0); %Eosinophils 0.8 % (0.0-10.0); %Monocytes 10.9 % (0.0-10.0); %Neutrophils 76.4 % (42.0-75.0); Hemoglobin 7.9 g/dL (14.0-18.0); Mean Corpuscular HGB CONC 30.4 g/dL (32.0-36.0); Mean Corpuscular Hemoglobin 31.6 pg (27.0-31.0); Mean Platelet Volume 8.8 fL (7.4-10.4); Platelet Count 339 10x3/uL (130-400); RBC Distribution Width 18.2 % (11.5-14.5); White Blood Cell (WBC) Count 15.7 10x3/uL (4.8-10.8)
[2023-07-18 04:35] LABS: Actual Bicarbonate (HCO3a) 23.6 mEq/L (22-28); Analyzer IN Cardio ER; Base Excess (BEa) -3.5 mEq/L (-2.0 to +3.0); CO2 Tension 53.2 mmHg (35.0-45.0); Calcium, Ionized (arterial) 1.23 mmol/L (1.12-1.30); Carboxyhemoglobin (COHb) 0.6 gm% (0.0-3.0); Hematocrit-ABG 26 % (42.0-52.0); Hemoglobin (Hb) 8.9 g/dL (14.0-18.0); Potassium - ABG Lab 4.53 mmol/L (3.70-5.30); pH, Arterial 7.264 (7.35-7.45)
[2023-07-18 04:40] LABS: O2 Tension (PaO2), arterial 46.5 mmHg (> 80.0); Puncture Site RRA
[2023-07-18 05:07] LABS: Troponin I 0.064 ng/mL (< 0.028)
[2023-07-18 05:13] LABS: Acetaminophen Less than 10 mcg/mL (10.0-30.0); Alcohol Less than 10.0 mg/dL (Less than 10); Lipase 67 U/L (8-78); Salicylate Less than 8.0 mg/dL (15.0-30.0)
[2023-07-18 05:14] LABS: ALT (SGPT) 47 U/L (8-55); AST (SGOT) 17 U/L (5-34); Albumin 2.5 g/dL (3.4-4.8); Alkaline Phosphatase 97 U/L (40-110); Anion Gap 13 mmol/L (10-20); BUN (Urea Nitrogen) 94 mg/dL (8.4-25.7); Bilirubin, Total 0.5 mg/dL (0.2-1.2); Calc. Creatinine Clearance 0 mL/min (70-130); Calcium 8.8 mg/dL (7.8-10.44); Carbon Dioxide 22 mmol/L (23-31); Chloride 108 mmol/L (98-107); Estimated GFR 50; Globulin 4.4 g/dL (2.4-3.5); Glucose 104 mg/dL (80-115); Potassium 4.5 mmol/L (3.5-5.1); Protein, Total 6.9 g/dL (5.8-8.1); Sodium 138 mmol/L (136-145)
[2023-07-18 05:44] LABS: Digoxin 0.79 ng/mL (0.8-2.0)
[2023-07-18 05:57] LABS: Influenza A by NAA Not Detected (NotDetected); Influenza B by NAA Not Detected (NotDetected); SARS-CoV-2 NAA Rapid Test Not Detected (NotDetected)
[2023-07-18 06:42] LABS: Bacteria/HPF 4+ HPF (None Seen); Bilirubin Negative (Negative); Blood, Urine Negative (Negative); CAUTI Indications for Culture Alt mental st,lethar; Clarity Turbid (Clear); Glucose, Urine (Dipstick) Normal (Negative); Ketone, Urine Negative (Negative); Leukocyte Negative Leu/uL (Negative); Nitrite Negative (Negative); Protein, Urine (Dipstick) 30 mg/dL (Neg-Trace); Specific Gravity, Urine 1.017 (1.002-1.036); Squamous Epithelial 0-3 HPF (0-3); Urobilinogen Normal mg/dL (Less than 2); Yeast-Budding 2+ HPF (None Seen); pH, Urine 5.5 (5.0-9.0)
[2023-07-18 06:48] LABS: RBC/HPF 0-3 HPF (0-3)
[2023-07-18 06:50] LABS: Urine Culture Reflex No No
[2023-07-18] MEDS ORDERED: LevoFLOXacin 750 mg/D5W 150 ml Premix Bag ONE (07:13)
[2023-07-18] MEDS ORDERED: Cefepime 2 GM VIAL ONE (07:13)
[2023-07-18] MEDS ORDERED: metroNIDAZOLE 500 MG (100 mL) BAG ONE (07:13)
[2023-07-18] MEDS ORDERED: Sodium Chloride 0.9% 100 ML ONE (07:14)
[2023-07-18 07:40] LABS: Amphetamine Not Detected (NotDetected); Barbiturates Screen Not Detected (NotDetected); Benzodiazepine Screen Not Detected (NotDetected); Cocaine Metabolite Screen Not Detected (NotDetected); Methadone Not Detected (NotDetected); Methamphetamine Not Detected (NotDetected); Opiate Screen Not Detected (NotDetected); Oxycodone Screen Not Detected (NotDetected); Phencyclidine (PCP) Not Detected (NotDetected); THC/Cannabinoid Screen Not Detected (NotDetected); Tricyclic Screen Not Detected (NotDetected)
[2023-07-18] MEDS ORDERED: levETIRAcetam 500 MG (5 mL) VIAL SLOW IVP SCH (09:00)
[2023-07-18] MEDS ORDERED: Ondansetron PF 4 MG/2 ML Vial IVP PRN (09:07)
[2023-07-18] MEDS ORDERED: Ondansetron ODT 4 MG TAB PO PRN (09:07)
[2023-07-18 10:11] LABS: Magnesium 2.5 mg/dL (1.6-2.6)
[2023-07-18] MEDS ORDERED: Vancomycin 1 GM/200 ML (FROZEN) BAG ONE (10:18)
[2023-07-18 10:27] LABS: Troponin I 0.072 ng/mL (< 0.028)
[2023-07-18] MEDS: Sodium Chloride 0.9% 1,000 ML IV SCH (10:31)
[2023-07-18] MEDS: Vancomycin 1 GM in Premix 1 BAG IVPB SCH (11:00)
[2023-07-18] MEDS ORDERED: Furosemide 40 MG (4 mL) VIAL ONE (12:01)
[2023-07-18 12:10] LABS: Actual Bicarbonate (HCO3a) 20.9 mEq/L (22-28); Analyzer IN Cardio ER; Base Excess (BEa) -9.5 mEq/L (-2.0 to +3.0); Calcium, Ionized (arterial) 1.18 mmol/L (1.12-1.30); Carboxyhemoglobin (COHb) 0.7 gm% (0.0-3.0); Hematocrit-ABG 26 % (42.0-52.0); Hemoglobin (Hb) 8.9 g/dL (14.0-18.0); O2 Tension (PaO2), arterial 104.2 mmHg (> 80.0)
[2023-07-18] MEDS ORDERED: KETAMINE 100 MG/ML (5ML VIAL) ONE (12:14)
[2023-07-18] MEDS ORDERED: Rocuronium Bromide 10 MG/ML (10ML VIAL) ONE (12:14)
[2023-07-18] MEDS ORDERED: NOREPINEPHRINE 8 MG/250 ML-D5W 250 ML ONE (12:23)
[2023-07-18 13:45] LABS: Hematocrit 26.4 % (42.0-52.0); Hemoglobin 7.8 g/dL (14.0-18.0); Platelet Count 378 10x3/uL (130-400)
[2023-07-18 14:19] LABS: Actual Bicarbonate (HCO3a) 18.4 mEq/L (22-28); Analyzer IN Cardio ER; Base Excess (BEa) -5.9 mEq/L (-2.0 to +3.0); CO2 Tension 33.4 mmHg (35.0-45.0); Calcium, Ionized (arterial) 1.13 mmol/L (1.12-1.30); O2 Tension (PaO2), arterial 349.8 mmHg (> 80.0); Potassium - ABG Lab 4.44 mmol/L (3.70-5.30)
[2023-07-18 14:26] LABS: Puncture Site RRA
[2023-07-18] MEDS ORDERED: Iopamidol-370 76% 500 ML MDV (1 ML CHARGE) ONE (14:32)
[2023-07-18 14:35] LABS: Iron 27 ug/dL (65-175); Iron Binding Capacity, Total 258 mcg/dL (261-462)
[2023-07-18] MEDS: FLU VACC QS2023-24(6MOS UP)/PF 60 MCG/0.5 ML SYRINGE IM ONE (14:53)
[2023-07-18] MEDS: NOREPINEPHRINE 8 MG/250 ML-D5W 250 ML IVPB SCH (15:00)
[2023-07-18] MEDS: Propofol 1,000 MG/100 ML VIAL IV PRN (15:00)
[2023-07-18] MEDS: metroNIDAZOLE 500 MG in Premix 1 BAG IVPB SCH (15:00)
[2023-07-18] MEDS ORDERED: Propofol BOLUS 1,000 MG/100 ML VIAL IV PRN (16:00)
[2023-07-18] MEDS ORDERED: Lorazepam 2 MG/ML VIAL SLOW IVP PRN (16:00)
[2023-07-18] MEDS ORDERED: Fentanyl CADD 100 ML IV SCH (16:00)
[2023-07-18] MEDS ORDERED: DISCONTINUE PREVIOUS NARCOTIC PAIN MEDICATIONS AND BENZODIAZEPINES FS SCH (16:00)
[2023-07-18] MEDS ORDERED: Fentanyl BOLUS 250 ML IVPB PRN (16:00)
[2023-07-18] MEDS: Furosemide 40 MG (4 mL) VIAL SLOW IVP SCH (16:25)
[2023-07-18] MEDS: Propofol 1,000 MG/100 ML VIAL IV ONE (16:30)
[2023-07-18] MEDS: Vancomycin HCl 500 MG in Sodium Chloride 0.9% 100 ML IVPB SCH (16:30)
[2023-07-18] MEDS: Pantoprazole 40 MG VIAL IVP SCH (20:28)
[2023-07-18] MEDS: Cefepime 1 GM in Sodium Chloride 0.9% 100 ML IVPB SCH (20:28)
[2023-07-18] MEDS: levETIRAcetam 500 mg/5 ml Oral Solution PO SCH (20:28)
[2023-07-18] MEDS ORDERED: Apixaban 2.5 MG TAB PO SCH (21:00)
[2023-07-18] MEDS ORDERED: Cefepime 2 GM in Sodium Chloride 0.9% 100 ML IVPB SCH (21:00)
[2023-07-18] MEDS ORDERED: levETIRAcetam 500 mg/5 ml Oral Solution PO SCH (21:00)
[2023-07-18] MEDS ORDERED: Famotidine/PF 20 mg/2ml Vial SLOW IVP SCH (21:00)
[2023-07-19 05:26] LABS: #Neutrophils 9.4 thou/uL (1.40-6.50); %Basophils 0.2 % (0.0-1.0); %Eosinophils 0.3 % (0.0-10.0); %Monocytes 8.6 % (0.0-10.0); %Neutrophils 81.4 % (42.0-75.0); Hematocrit 21.7 % (42.0-52.0); Hemoglobin 6.9 g/dL (14.0-18.0); Mean Corpuscular HGB CONC 31.8 g/dL (32.0-36.0); Mean Corpuscular Hemoglobin 31.8 pg (27.0-31.0); Mean Platelet Volume 9.2 fL (7.4-10.4); RBC Distribution Width 17.9 % (11.5-14.5); Red Blood Cell (RBC) Count 2.17 mill/uL (4.70-6.10); White Blood Cell (WBC) Count 11.6 10x3/uL (4.8-10.8)
[2023-07-19 05:40] LABS: Platelet Count 265 10x3/uL (130-400)
[2023-07-19 05:55] LABS: ALT (SGPT) 31 U/L (8-55); AST (SGOT) 16 U/L (5-34); Albumin 1.9 g/dL (3.4-4.8); Alkaline Phosphatase 66 U/L (40-110); Anion Gap 14 mmol/L (10-20); BUN (Urea Nitrogen) 82 mg/dL (8.4-25.7); Bilirubin, Total 0.4 mg/dL (0.2-1.2); Calc. Creatinine Clearance 53 mL/min (70-130); Calcium 7.8 mg/dL (7.8-10.44); Carbon Dioxide 20 mmol/L (23-31); Chloride 114 mmol/L (98-107); Estimated GFR 47; Globulin 3.8 g/dL (2.4-3.5); Glucose 87 mg/dL (80-115); Potassium 3.1 mmol/L (3.5-5.1); Protein, Total 5.7 g/dL (5.8-8.1); Sodium 145 mmol/L (136-145)
[2023-07-19] MEDS: Furosemide 40 MG (4 mL) VIAL SLOW IVP SCH (06:11)
[2023-07-19] MEDS: Digoxin 0.125 MG TAB PO SCH (08:48)
[2023-07-19] MEDS ORDERED: Digoxin 0.125 MG TAB PO SCH (09:00)
[2023-07-19] MEDS: Morphine 2 MG/ML VIAL SLOW IVP PRN (09:29)
[2023-07-19] MEDS ORDERED: Ketamine In 0.9 % NaCl 50 MG/5 ML SYRINGE ONE (10:08)
[2023-07-19] MEDS ORDERED: Midazolam HCl 2 mg/2 ml Vial ONE (10:08)
[2023-07-19 10:40] LABS: CO2 Tension 75.6 mmHg (35.0-45.0); pH, Arterial 7.059 (7.35-7.45)
[2023-07-19] MEDS ORDERED: Electrolyte Replacement Protocol 1 EACH FS SCH (15:15)
[2023-07-19] MEDS: Acetaminophen 325 MG TAB PO PRN (15:15)
[2023-07-19] MEDS ORDERED: Potassium Bicarbonate/Cit Ac 20 MEQ TAB PO SCH (16:00)
[2023-07-19] MEDS: Potassium Chloride 40 MEQ in Premix 1 BAG IVPB SCH (16:57)
[2023-07-19] MEDS: Potassium Chloride 20 MEQ in Premix 1 BAG IVPB SCH (17:54)
[2023-07-19] MEDS ORDERED: Vancomycin (BATCH) 1.5 GM in Premix 1 BAG IVPB SCH (18:00)
[2023-07-19 19:25] LABS: #Neutrophils 12.7 thou/uL (1.40-6.50); %Basophils 0.1 % (0.0-1.0); %Eosinophils 0.3 % (0.0-10.0); %Lymphocytes 6.9 % (21.0-51.0); %Monocytes 6.9 % (0.0-10.0); %Neutrophils 84.9 % (42.0-75.0); Hematocrit 27.7 % (42.0-52.0); Hemoglobin 9.1 g/dL (14.0-18.0); Mean Corpuscular HGB CONC 32.9 g/dL (32.0-36.0); Mean Corpuscular Hemoglobin 31.1 pg (27.0-31.0); Mean Platelet Volume 8.7 fL (7.4-10.4); Platelet Count 318 10x3/uL (130-400); RBC Distribution Width 20.2 % (11.5-14.5); Red Blood Cell (RBC) Count 2.93 mill/uL (4.70-6.10); White Blood Cell (WBC) Count 14.9 10x3/uL (4.8-10.8)
[2023-07-19 19:29] LABS: Mean Corpuscular Volume 94.5 fl (78.0-98.0)
[2023-07-19 21:55] LABS: Magnesium 1.7 mg/dL (1.6-2.6)
[2023-07-19] MEDS: Magnesium 2 GM/50 ML(in water) 2 GM in Premix 1 BAG IVPB SCH (22:25)
[2023-07-20 03:30] LABS: %Eosinophils 0.9 % (0.0-10.0); %Lymphocytes 8.9 % (21.0-51.0); %Monocytes 7.9 % (0.0-10.0); %Neutrophils 81.1 % (42.0-75.0); Hematocrit 28.4 % (42.0-52.0); Hemoglobin 9.2 g/dL (14.0-18.0); Mean Corpuscular HGB CONC 32.4 g/dL (32.0-36.0); Mean Corpuscular Hemoglobin 30.1 pg (27.0-31.0); Mean Corpuscular Volume 92.8 fl (78.0-98.0); Mean Platelet Volume 8.6 fL (7.4-10.4); Platelet Count 360 10x3/uL (130-400); RBC Distribution Width 20.6 % (11.5-14.5); Red Blood Cell (RBC) Count 3.06 mill/uL (4.70-6.10); White Blood Cell (WBC) Count 14.8 10x3/uL (4.8-10.8)
[2023-07-20 03:31] LABS: #Basophils 0.1 thou/uL (0.0-0.2); #Eosinphils 0.1 thou/uL (0.0-0.7); #Monocytes 1.2 thou/uL (0.11-0.59); %Basophils 0.3 % (0.0-1.0)
[2023-07-20 03:58] LABS: Anion Gap 17 mmol/L (10-20); BUN (Urea Nitrogen) 66 mg/dL (8.4-25.7); Calc. Creatinine Clearance 56 mL/min (70-130); Calcium 7.9 mg/dL (7.8-10.44); Carbon Dioxide 19 mmol/L (23-31); Chloride 112 mmol/L (98-107); Estimated GFR 50; Glucose 99 mg/dL (80-115); Magnesium 2.5 mg/dL (1.6-2.6); Potassium 2.8 mmol/L (3.5-5.1); Sodium 145 mmol/L (136-145)
[2023-07-20] MEDS: Potassium Chloride 40 MEQ in Premix 1 BAG IVPB SCH (04:30)
[2023-07-20 04:38] LABS: Phosphorus 3.4 mg/dL (2.3-4.7)
[2023-07-20 11:19] LABS: Lactic Acid 1.3 mmol/L (0.5-2.2)
[2023-07-20] MEDS: Meropenem 1 GM in Sodium Chloride 0.9% 100 ML IVPB SCH ×2 (13:37→21:06)
[2023-07-20 14:37] LABS: Anion Gap 17 mmol/L (10-20); BUN (Urea Nitrogen) 61 mg/dL (8.4-25.7); Calc. Creatinine Clearance 56 mL/min (70-130); Calcium 7.3 mg/dL (7.8-10.44); Carbon Dioxide 19 mmol/L (23-31); Chloride 115 mmol/L (98-107); Estimated GFR 54; Glucose 84 mg/dL (80-115); Sodium 147 mmol/L (136-145)
[2023-07-20] MEDS ORDERED: Lactated Ringer's 500 ML IV SCH (19:00)
[2023-07-20] MEDS ORDERED: Polyethylene Glycol OPTH DROP 15 ML BOT EA EYE PRN (21:23)
[2023-07-21] MEDS: Ondansetron PF 4 MG/2 ML Vial ONE (02:56)
[2023-07-21] MEDS: SYSTANE 0.3-0.4% EYE DROPS (30 ML) EA EYE PRN (02:59)
[2023-07-21 04:10] LABS: #Eosinphils 0.2 thou/uL (0.0-0.7); #Monocytes 0.9 thou/uL (0.11-0.59); #Neutrophils 8.5 thou/uL (1.40-6.50); %Basophils 0.2 % (0.0-1.0); %Eosinophils 1.9 % (0.0-10.0); %Monocytes 8.4 % (0.0-10.0); %Neutrophils 75.5 % (42.0-75.0); Hemoglobin 8.3 g/dL (14.0-18.0); Mean Corpuscular HGB CONC 31.9 g/dL (32.0-36.0); Mean Corpuscular Hemoglobin 30.9 pg (27.0-31.0); Mean Corpuscular Volume 96.7 fl (78.0-98.0); Mean Platelet Volume 8.9 fL (7.4-10.4); Platelet Count 252 10x3/uL (130-400); RBC Distribution Width 21.2 % (11.5-14.5); Red Blood Cell (RBC) Count 2.69 mill/uL (4.70-6.10); White Blood Cell (WBC) Count 11.2 10x3/uL (4.8-10.8)
[2023-07-21 04:38] LABS: Anion Gap 15 mmol/L (10-20); BUN (Urea Nitrogen) 60 mg/dL (8.4-25.7); Calc. Creatinine Clearance 55 mL/min (70-130); Calcium 7.8 mg/dL (7.8-10.44); Carbon Dioxide 20 mmol/L (23-31); Chloride 116 mmol/L (98-107); Estimated GFR 52; Glucose 76 mg/dL (80-115); Potassium 3.5 mmol/L (3.5-5.1); Sodium 147 mmol/L (136-145)
[2023-07-21] MEDS: Magnesium 2 GM/50 ML(in water) 2 GM in Premix 1 BAG IVPB SCH (06:40)
[2023-07-21] MEDS: Potassium Chloride 40 MEQ in Premix 1 BAG IVPB SCH (06:40)
[2023-07-21 07:56] LABS: Phosphorus 3.7 mg/dL (2.3-4.7)
[2023-07-21 09:02] LABS: Lactic Acid 1.1 mmol/L (0.5-2.2)
[2023-07-21] MEDS ORDERED: DC Sedation Protocol FS SCH (09:03)
[2023-07-21] MEDS: Multivitamins, Adult 10 ML, TRACE ELEMENT CONCENTRATE 1 ML in D15W-AA 5% with Lytes 2,0... IV SCH (20:14)
[2023-07-21] MEDS: levETIRAcetam 500 MG (5 mL) VIAL SLOW IVP SCH (20:37)
[2023-07-22 04:29] LABS: #Eosinphils 0.4 thou/uL (0.0-0.7); #Monocytes 0.9 thou/uL (0.11-0.59); #Neutrophils 7.2 thou/uL (1.40-6.50); %Basophils 0.4 % (0.0-1.0); %Eosinophils 3.8 % (0.0-10.0); %Lymphocytes 13.1 % (21.0-51.0); %Monocytes 8.9 % (0.0-10.0); %Neutrophils 73.2 % (42.0-75.0); Hematocrit 25.5 % (42.0-52.0); Hemoglobin 7.8 g/dL (14.0-18.0); Mean Corpuscular HGB CONC 30.6 g/dL (32.0-36.0); Mean Corpuscular Hemoglobin 30.6 pg (27.0-31.0); Mean Platelet Volume 9.1 fL (7.4-10.4); Platelet Count 206 10x3/uL (130-400); RBC Distribution Width 20.9 % (11.5-14.5); Red Blood Cell (RBC) Count 2.55 mill/uL (4.70-6.10); White Blood Cell (WBC) Count 9.8 10x3/uL (4.8-10.8)
[2023-07-22 05:07] LABS: Digoxin 0.22 ng/mL (0.8-2.0)
[2023-07-22 05:21] LABS: Anion Gap 15 mmol/L (10-20); BUN (Urea Nitrogen) 56 mg/dL (8.4-25.7); Calc. Creatinine Clearance 51 mL/min (70-130); Calcium 8.3 mg/dL (7.8-10.44); Carbon Dioxide 22 mmol/L (23-31); Chloride 116 mmol/L (98-107); Estimated GFR 50; Glucose 130 mg/dL (80-115); Magnesium 2.5 mg/dL (1.6-2.6); Potassium 3.7 mmol/L (3.5-5.1); Sodium 149 mmol/L (136-145)
[2023-07-22 05:24] LABS: Phosphorus 3.6 mg/dL (2.3-4.7)
[2023-07-22] MEDS: Potassium ACETATE 20 MEQ, Potassium Phosphate 30 MMOL, Calcium Gluconate 10 MEQ, Magnes... IV SCH (14:23)
[2023-07-22] MEDS: Sodium Chloride 0.9% 100 ML ONE (15:25)
[2023-07-23 04:23] LABS: #Eosinphils 0.5 thou/uL (0.0-0.7); #Monocytes 0.8 thou/uL (0.11-0.59); #Neutrophils 6.8 thou/uL (1.40-6.50); %Basophils 0.2 % (0.0-1.0); %Eosinophils 4.8 % (0.0-10.0); %Lymphocytes 13.6 % (21.0-51.0); %Monocytes 8.7 % (0.0-10.0); %Neutrophils 72.1 % (42.0-75.0); Hematocrit 25.6 % (42.0-52.0); Hemoglobin 7.7 g/dL (14.0-18.0); Mean Corpuscular HGB CONC 30.1 g/dL (32.0-36.0); Mean Corpuscular Hemoglobin 30.1 pg (27.0-31.0); Mean Platelet Volume 9.9 fL (7.4-10.4); Platelet Count 152 10x3/uL (130-400); Red Blood Cell (RBC) Count 2.56 mill/uL (4.70-6.10); White Blood Cell (WBC) Count 9.5 10x3/uL (4.8-10.8)
[2023-07-23 05:07] LABS: Anion Gap 12 mmol/L (10-20); BUN (Urea Nitrogen) 61 mg/dL (8.4-25.7); Calc. Creatinine Clearance 57 mL/min (70-130); Calcium 8.4 mg/dL (7.8-10.44); Carbon Dioxide 23 mmol/L (23-31); Chloride 115 mmol/L (98-107); Estimated GFR 57; Glucose 111 mg/dL (80-115); Sodium 146 mmol/L (136-145)
[2023-07-23 05:08] LABS: Phosphorus 3.8 mg/dL (2.3-4.7)
[2023-07-23 07:05] LABS: Magnesium 2.2 mg/dL (1.6-2.6)
[2023-07-23] MEDS: Fluticasone Propionate Nasal Spray 16 gm Bottle NASAL SCH (09:23)
[2023-07-24 07:03] LABS: #Eosinphils 0.5 thou/uL (0.0-0.7); #Monocytes 0.7 thou/uL (0.11-0.59); %Basophils 0.2 % (0.0-1.0); %Eosinophils 5.2 % (0.0-10.0); %Lymphocytes 13.8 % (21.0-51.0); %Monocytes 7.5 % (0.0-10.0); %Neutrophils 72.8 % (42.0-75.0); Hematocrit 26.8 % (42.0-52.0); Hemoglobin 8.2 g/dL (14.0-18.0); Mean Corpuscular HGB CONC 30.6 g/dL (32.0-36.0); Mean Corpuscular Hemoglobin 30.5 pg (27.0-31.0); Mean Corpuscular Volume 99.6 fl (78.0-98.0); Mean Platelet Volume 10.1 fL (7.4-10.4); Platelet Count 147 10x3/uL (130-400); RBC Distribution Width 19.5 % (11.5-14.5); Red Blood Cell (RBC) Count 2.69 mill/uL (4.70-6.10); White Blood Cell (WBC) Count 9.7 10x3/uL (4.8-10.8)
[2023-07-24 07:18] LABS: Anion Gap 13 mmol/L (10-20); BUN (Urea Nitrogen) 64 mg/dL (8.4-25.7); Calc. Creatinine Clearance 64 mL/min (70-130); Calcium 8.2 mg/dL (7.8-10.44); Carbon Dioxide 23 mmol/L (23-31); Chloride 111 mmol/L (98-107); Estimated GFR 62; Glucose 104 mg/dL (80-115); Phosphorus 3.7 mg/dL (2.3-4.7); Potassium 4.1 mmol/L (3.5-5.1); Sodium 143 mmol/L (136-145)
[2023-07-24] MEDS: Magnesium 2 GM/50 ML(in water) 2 GM in Premix 1 BAG IVPB SCH (08:21)
[2023-07-24] MEDS: Digoxin 0.125 MG TAB PO SCH (08:21)
[2023-07-24] MEDS: Fluticasone Propionate Nasal Spray 16 gm Bottle NASAL SCH (09:38)
[2023-07-24 12:39] LABS: Fungitell Beta (1,3) D-Glucan Negative (.)
[2023-07-25 04:33] LABS: #Eosinphils 0.5 thou/uL (0.0-0.7); #Monocytes 0.8 thou/uL (0.11-0.59); %Basophils 0.3 % (0.0-1.0); %Eosinophils 5.4 % (0.0-10.0); %Lymphocytes 17.3 % (21.0-51.0); %Monocytes 7.6 % (0.0-10.0); %Neutrophils 69.1 % (42.0-75.0); Hematocrit 26.3 % (42.0-52.0); Mean Corpuscular HGB CONC 30.4 g/dL (32.0-36.0); Mean Corpuscular Volume 98.5 fl (78.0-98.0); Mean Platelet Volume 9.7 fL (7.4-10.4); Platelet Count 159 10x3/uL (130-400); RBC Distribution Width 19.1 % (11.5-14.5); Red Blood Cell (RBC) Count 2.67 mill/uL (4.70-6.10); White Blood Cell (WBC) Count 10.1 10x3/uL (4.8-10.8)
[2023-07-25 04:42] LABS: Anion Gap 10 mmol/L (10-20); BUN (Urea Nitrogen) 65 mg/dL (8.4-25.7); Calc. Creatinine Clearance 71 mL/min (70-130); Calcium 8.4 mg/dL (7.8-10.44); Carbon Dioxide 23 mmol/L (23-31); Chloride 108 mmol/L (98-107); Estimated GFR 71; Glucose 100 mg/dL (80-115); Potassium 3.9 mmol/L (3.5-5.1); Sodium 137 mmol/L (136-145)
[2023-07-25 08:27] LABS: Magnesium 2.3 mg/dL (1.6-2.6); Phosphorus 3.7 mg/dL (2.3-4.7)
[2023-07-25] MEDS: Potassium ACETATE 20 MEQ, Potassium Phosphate 30 MMOL, Calcium Gluconate 10 MEQ, Magnes... IV SCH (13:59)
[2023-07-25] MEDS: Apixaban 2.5 MG TAB PO SCH (20:22)
[2023-07-26 04:26] LABS: #Eosinphils 0.6 thou/uL (0.0-0.7); #Monocytes 0.7 thou/uL (0.11-0.59); #Neutrophils 6.7 thou/uL (1.40-6.50); %Basophils 0.3 % (0.0-1.0); %Eosinophils 5.7 % (0.0-10.0); %Lymphocytes 19.7 % (21.0-51.0); %Neutrophils 66.7 % (42.0-75.0); Hematocrit 26.9 % (42.0-52.0); Hemoglobin 8.3 g/dL (14.0-18.0); Mean Corpuscular HGB CONC 30.9 g/dL (32.0-36.0); Mean Corpuscular Hemoglobin 30.1 pg (27.0-31.0); Mean Corpuscular Volume 97.5 fl (78.0-98.0); Mean Platelet Volume 9.7 fL (7.4-10.4); Platelet Count 161 10x3/uL (130-400); RBC Distribution Width 18.8 % (11.5-14.5); Red Blood Cell (RBC) Count 2.76 mill/uL (4.70-6.10); White Blood Cell (WBC) Count 10.1 10x3/uL (4.8-10.8)
[2023-07-26 04:55] LABS: Anion Gap 14 mmol/L (10-20); BUN (Urea Nitrogen) 64 mg/dL (8.4-25.7); Calc. Creatinine Clearance 74 mL/min (70-130); Calcium 8.5 mg/dL (7.8-10.44); Carbon Dioxide 20 mmol/L (23-31); Chloride 105 mmol/L (98-107); Estimated GFR 73; Glucose 96 mg/dL (80-115); Potassium 4.1 mmol/L (3.5-5.1); Sodium 135 mmol/L (136-145)
[2023-07-26] MEDS: Furosemide 40 MG TAB PO SCH (09:00)
[2023-07-26] MEDS ORDERED: Potassium ACETATE 20 MEQ, Potassium Phosphate 30 MMOL, Calcium Gluconate 10 MEQ, Magnes... IV SCH (14:00)
[2023-07-26] MEDS: Potassium ACETATE 20 MEQ, Potassium Phosphate 30 MMOL, Calcium Gluconate 10 MEQ, Magnes... IV SCH (14:55)
[2023-07-26] MEDS: Ondansetron PF 4 MG/2 ML Vial IVP PRN (20:47)
[2023-07-27] MEDS: Potassium ACETATE 20 MEQ, Potassium Phosphate 30 MMOL, Calcium Gluconate 10 MEQ, Magnes... IV SCH (15:14)
[2023-07-28 08:10] LABS: #Eosinphils 0.5 thou/uL (0.0-0.7); #Monocytes 0.9 thou/uL (0.11-0.59); #Neutrophils 6.2 thou/uL (1.40-6.50); %Basophils 0.3 % (0.0-1.0); %Eosinophils 5.5 % (0.0-10.0); %Lymphocytes 18.2 % (21.0-51.0); %Monocytes 9.9 % (0.0-10.0); %Neutrophils 65.4 % (42.0-75.0); Hematocrit 24.4 % (42.0-52.0); Hemoglobin 7.7 g/dL (14.0-18.0); Mean Corpuscular HGB CONC 31.6 g/dL (32.0-36.0); Mean Corpuscular Hemoglobin 30.8 pg (27.0-31.0); Mean Corpuscular Volume 97.6 fl (78.0-98.0); Platelet Count 163 10x3/uL (130-400); RBC Distribution Width 18.4 % (11.5-14.5); White Blood Cell (WBC) Count 9.5 10x3/uL (4.8-10.8)
[2023-07-28 08:29] LABS: ALT (SGPT) 65 U/L (8-55); AST (SGOT) 50 U/L (5-34); Albumin 2.3 g/dL (3.4-4.8); Alkaline Phosphatase 129 U/L (40-110); Anion Gap 13 mmol/L (10-20); BUN (Urea Nitrogen) 63 mg/dL (8.4-25.7); Bilirubin, Total 0.4 mg/dL (0.2-1.2); Calc. Creatinine Clearance 79 mL/min (70-130); Calcium 8.6 mg/dL (7.8-10.44); Carbon Dioxide 21 mmol/L (23-31); Chloride 102 mmol/L (98-107); Estimated GFR 76; Globulin 4.3 g/dL (2.4-3.5); Glucose 102 mg/dL (80-115); Magnesium 1.8 mg/dL (1.6-2.6); Potassium 4.1 mmol/L (3.5-5.1); Protein, Total 6.6 g/dL (5.8-8.1); Sodium 132 mmol/L (136-145)
[2023-07-28] MEDS: levETIRAcetam 500 MG TAB PO SCH (21:39)
[2023-07-29 06:40] LABS: Hematocrit 27.9 % (42.0-52.0); Hemoglobin 8.7 g/dL (14.0-18.0); Mean Corpuscular HGB CONC 31.2 g/dL (32.0-36.0); Mean Corpuscular Hemoglobin 30.5 pg (27.0-31.0); Mean Corpuscular Volume 97.9 fl (78.0-98.0); Platelet Count 187 10x3/uL (130-400); RBC Distribution Width 18.3 % (11.5-14.5); Red Blood Cell (RBC) Count 2.85 mill/uL (4.70-6.10); White Blood Cell (WBC) Count 8.8 10x3/uL (4.8-10.8)
[2023-07-29 06:59] LABS: Manual Diff?? YES
[2023-07-29 07:00] LABS: Delete Auto Diff?? YES
[2023-07-29 07:28] LABS: ALT (SGPT) 60 U/L (8-55); AST (SGOT) 54 U/L (5-34); Albumin 2.5 g/dL (3.4-4.8); Alkaline Phosphatase 132 U/L (40-110); Anion Gap 13 mmol/L (10-20); BUN (Urea Nitrogen) 64 mg/dL (8.4-25.7); Bilirubin, Total 0.5 mg/dL (0.2-1.2); Calc. Creatinine Clearance 81 mL/min (70-130); Calcium 8.9 mg/dL (7.8-10.44); Carbon Dioxide 23 mmol/L (23-31); Chloride 101 mmol/L (98-107); Estimated GFR 78; Globulin 4.3 g/dL (2.4-3.5); Glucose 105 mg/dL (80-115); Magnesium 1.8 mg/dL (1.6-2.6); Phosphorus 4.9 mg/dL (2.3-4.7); Potassium 4.5 mmol/L (3.5-5.1); Protein, Total 6.8 g/dL (5.8-8.1); Sodium 132 mmol/L (136-145)
[2023-07-29 07:55] LABS: Anisocytosis SLIGHT = 6-15 cells HPF (0-5); CellaVision Operator ID LAB.CMB; Macrocytosis SLIGHT = 6-15 cells HPF (0-5); Other Cell Types 1.9; Platelet Adequacy Comment Platelets Normal; Polychromasia SLIGHT = 2-3 cells HPF (0-2)
[2023-07-29 08:35] LABS: Band 3 % (5-11); Eosinophils 8 % (0-10); Large Platelets 0.9 % (0-5); Lymphocytes 16 % (21-51); Monocytes 5 % (0-10); Neutrophil 66 % (42-75); Ovalocytes SLIGHT = 2-5 cells HPF (0-1); Total Cell Count 110
[2023-07-29] MEDS: POTASSIUM ACETATE IV SCH (15:20)
[2023-07-29] MEDS: [UNRECOGNIZED DRUG - OTHER] IV SCH (15:20)
[2023-07-29] MEDS: POTASSIUM PHOSPHATE IV SCH (15:20)
[2023-07-29] MEDS: CALCIUM GLUCONATE IV SCH (15:20)
[2023-07-30 12:46] VITALS: BMI 25.4
[2023-07-30] MEDS: [UNRECOGNIZED DRUG - OTHER] IV SCH (14:23)
[2023-07-30] MEDS: POTASSIUM ACETATE IV SCH (14:23)
[2023-07-30] MEDS: POTASSIUM PHOSPHATE IV SCH (14:23)
[2023-07-30] MEDS: CALCIUM GLUCONATE IV SCH (14:23)
[2023-07-31 09:19] LABS: Hematocrit 23.6 % (42.0-52.0); Hemoglobin 7.7 g/dL (14.0-18.0); Mean Corpuscular HGB CONC 32.6 g/dL (32.0-36.0); Mean Corpuscular Hemoglobin 31.4 pg (27.0-31.0); Mean Corpuscular Volume 96.3 fl (78.0-98.0); Platelet Count 204 10x3/uL (130-400); RBC Distribution Width 17.4 % (11.5-14.5); Red Blood Cell (RBC) Count 2.45 mill/uL (4.70-6.10); White Blood Cell (WBC) Count 8.9 10x3/uL (4.8-10.8)
[2023-07-31 09:38] LABS: ALT (SGPT) 91 U/L (8-55); AST (SGOT) 86 U/L (5-34); Albumin 2.3 g/dL (3.4-4.8); Alkaline Phosphatase 186 U/L (40-110); Anion Gap 10 mmol/L (10-20); BUN (Urea Nitrogen) 65 mg/dL (8.4-25.7); Bilirubin, Total 0.5 mg/dL (0.2-1.2); Calc. Creatinine Clearance 83 mL/min (70-130); Calcium 8.6 mg/dL (7.8-10.44); Carbon Dioxide 25 mmol/L (23-31); Chloride 96 mmol/L (98-107); Estimated GFR 80; Globulin 4.3 g/dL (2.4-3.5); Glucose 101 mg/dL (80-115); Phosphorus 3.3 mg/dL (2.3-4.7); Potassium 3.9 mmol/L (3.5-5.1); Protein, Total 6.6 g/dL (5.8-8.1); Sodium 127 mmol/L (136-145); Triglycerides 85 mg/dL (Less than 150)
[2023-07-31] MEDS: [UNRECOGNIZED DRUG - OTHER] IV SCH (15:04)
[2023-07-31] MEDS: POTASSIUM ACETATE IV SCH (15:04)
[2023-07-31] MEDS: SODIUM CHLORIDE IV SCH (15:04)
[2023-07-31] MEDS: SODIUM ACETATE IV SCH (15:04)
[2023-07-31 15:45] VITALS: BP 137/66; TEMP 98.1
[2023-08-01] MEDS ORDERED: SODIUM CHLORIDE IV SCH (14:00)
[2023-08-01] MEDS ORDERED: SODIUM ACETATE IV SCH (14:00)
[2023-08-01] MEDS ORDERED: [UNRECOGNIZED DRUG - OTHER] IV SCH (14:00)
[2023-08-01] MEDS ORDERED: POTASSIUM ACETATE IV SCH (14:00)
== END 2023-07-31 18:10 | disposition home or self-care (01) | DRG 871 ==
LOC: ERS 03:43 → ERHOLD 08:58 → CCU 13:53 → 2NO 07-24 19:58
PROVIDERS: ADMIT Hospitalist; ATTEND Internal Medicine
PROC: 4A00X4Z Measurement of Central Nervous Electrical Activity, External Approach (ICD-10-PCS; principal; 2023-07-18)
PROC: 4A133R1 Monitoring of Arterial Saturation, Peripheral, Percutaneous Approach (ICD-10-PCS; 2023-07-18)
PROC: 3E03329 Introduction of Other Anti-infective into Peripheral Vein, Percutaneous Approach (ICD-10-PCS; 2023-07-18)
PROC: 3E033XZ Introduction of Vasopressor into Peripheral Vein, Percutaneous Approach (ICD-10-PCS; 2023-07-18)
PROC: 0BH17EZ Insertion of Endotracheal Airway into Trachea, Via Natural or Artificial Opening (ICD-10-PCS; 2023-07-18)
PROC: 5A1945Z Respiratory Ventilation, 24-96 Consecutive Hours (ICD-10-PCS; 2023-07-18)
PROC: 0DJ08ZZ Inspection of Upper Intestinal Tract, Via Natural or Artificial Opening Endoscopic (ICD-10-PCS; 2023-07-19)
PROC: 03HY32Z Insertion of Monitoring Device into Upper Artery, Percutaneous Approach (ICD-10-PCS; 2023-07-19)
PROC: 4A133B1 Monitoring of Arterial Pressure, Peripheral, Percutaneous Approach (ICD-10-PCS; 2023-07-19)
PROC: 4A133J1 Monitoring of Arterial Pulse, Peripheral, Percutaneous Approach (ICD-10-PCS; 2023-07-19)
PROC: 4A00X4Z Measurement of Central Nervous Electrical Activity, External Approach (ICD-10-PCS; 2023-07-19)
PROC: 30233N1 Transfusion of Nonautologous Red Blood Cells into Peripheral Vein, Percutaneous Approach (ICD-10-PCS; 2023-07-19)
DX: A41.81 Sepsis due to Enterococcus (principal); G93.41 Metabolic encephalopathy; L89.154 Pressure ulcer of sacral region, stage 4; J96.01 Acute respiratory failure with hypoxia; J96.02 Acute respiratory failure with hypercapnia; I50.23 Acute on chronic systolic (congestive) heart failure; R65.21 Severe sepsis with septic shock; I21.A1 Myocardial infarction type 2; I69.353 Hemiplegia and hemiparesis following cerebral infarction affecting right non-dominant side; G40.919 Epilepsy, unspecified, intractable, without status epilepticus; N17.9 Acute kidney failure, unspecified; K92.2 Gastrointestinal hemorrhage, unspecified; N39.0 Urinary tract infection, site not specified; E87.20 Acidosis, unspecified; E87.1 Hypo-osmolality and hyponatremia; A41.4 Sepsis due to anaerobes; I25.10 Atherosclerotic heart disease of native coronary artery without angina pectoris; N18.30 Chronic kidney disease, stage 3 unspecified; R40.0 Somnolence; D63.1 Anemia in chronic kidney disease; G93.89 Other specified disorders of brain; G47.30 Sleep apnea, unspecified; K21.9 Gastro-esophageal reflux disease without esophagitis; I48.91 Unspecified atrial fibrillation; R79.89 Other specified abnormal findings of blood chemistry; D53.9 Nutritional anemia, unspecified; I95.9 Hypotension, unspecified; I25.5 Ischemic cardiomyopathy; Z88.8 Allergy status to other drugs, medicaments and biological substances; Z88.5 Allergy status to narcotic agent; Z79.899 Other long term (current) drug therapy; Z90.49 Acquired absence of other specified parts of digestive tract; Z95.1 Presence of aortocoronary bypass graft; Z98.890 Other specified postprocedural states
CPT/HCPCS: 31500; 36415; 36416; 36430; 36556; 36600; 43753; 51702; 70450; 71045; 71275; 74018; 74230; 80048; 80053; 80162; 80306; 80307; 81001; 82140; 82607; 82728; 82805; 83540; 83550; 83605; 83690; 83735; 83880; 84100; 84145; 84146; 84443; 84478; 84484; 85025; 85027; 85046; 86140; 86850; 86900; 86901; 87040; 87077; 87086; 87186; 87449; 93005; 93010; 93306; 94002; 94003; 95711; 95816; 95819; 96365; 96367; 96375; 97139; C9113; J0612; J0692; J1940; J1953; J1956; J2185; J2250; J2272; J2405; J2704; J3370; J3370-JW; J3475; J3480; J3490; J7050; P9016; Q9967